=== PATIENT | male | born 1930 | race Two or more races ===

== ENCOUNTER 2017-11-23 19:46 | Inpatient (IN) | payer MEDICARE, OTHER ==
[~2017-11-23] VITALS: Ht 172.7 cm; Wt 72.1 kg
[2017-11-23] MEDS ORDERED: ACETAMINOPHEN 325 MG TABLET PO ONE (20:00)
[2017-11-23] MEDS ORDERED: IV NORMAL SALINE 500ML 500 ML IV ONE ×2 (20:00→22:00)
[2017-11-23] MEDS ORDERED: OSELTAMIVIR 75 MG CAPSULE PO ONE (20:00)
[2017-11-23 20:34] LABS: BASO % 1 % (0-3); EOS # 0.1 x10^3/uL (0.0-0.7); EOS % 3 % (0-3); HEMOGLOBIN 13.9 g/dL (13.0-17.5); LYMPH # 0.2 x10^3/uL (1.0-4.8); LYMPH % 6 % (24-48); MEAN CORPUSCULAR HEMOGLOBIN 28 pg (25-35); MEAN CORPUSCULAR HGB CONC 33 g/dL (31-37); MEAN CORPUSCULAR VOLUME 85 fL (79-100); MONO # 0.5 x10^3/uL (0.0-1.1); MONO % 15 % (0-9); NEUT # 2.6 x10^3uL (1.8-7.7); NEUT % 75 % (31-73); PLATELET COUNT 133 x10^3/uL (140-400); RED BLOOD COUNT 4.97 x10^6/uL (4.30-5.70); RED CELL DISTRIBUTION WIDTH 13.3 % (11.5-14.5); WHITE BLOOD COUNT 3.4 x10^3/uL (4.0-11.0)
[2017-11-23 20:57] LABS: ALBUMIN 3.2 g/dL (3.4-5.0); CALCIUM 8.5 mg/dL (8.5-10.1); CREATININE 1.7 mg/dL (0.7-1.3); DIRECT BILIRUBIN 0.1 mg/dL (0.0-0.2); GFR 38.5; POTASSIUM 5.1 mmol/L (3.5-5.1); TOTAL BILIRUBIN 0.2 mg/dL (0.2-1.0); TOTAL PROTEIN 7.6 g/dL (6.4-8.2)
[2017-11-23 21:39] LABS: INFLUENZA A PATIENT NEGATIVE (NEGATIVE); INFLUENZA B PATIENT POSITIVE (NEGATIVE)
--- NOTE | 2017-11-23 21:43 | EKG ---
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 LIMB LEAD MISPLACEMENT T ABNORMALITY IN HIGH LATERAL LEADS PACEMAKER ARTIFACT Electronically Signed On 11-29-2017 12:51:44 BINDER ROLLER by Kevin Farr MD
[2017-11-23] MEDS ORDERED: MORPHINE SULFATE 2 MG/ML DISP.SYRIN. IV PRN (22:00)
[2017-11-23 23:40] VITALS: BP 167/96
[2017-11-24] VITALS (18 sets, daily range): BP systolic 124–191; BP diastolic 69–100
--- NOTE | 2017-11-24 00:53 | PHYS DOC ---
Past History Past Medical History: Diabetes, High Cholesterol, Hypertension, Stroke Past Surgical History: Other Alcohol Use: None Drug Use: None Adult General Chief Complaint Chief Complaint: FLU SYMPTOM HPI HPI This is a pleasant 87-year-old male with a history of high blood pressure diabetes and high cholesterol resenting to the emergency department today with cough fever and runny nose muscle aches and generalized fatigue. This started within the last 24 hours. He presents today by EMS. The pain in his muscles is a throbbing sensation that is generalized without alleviating or exacerbating factors present. No recent influenza contacts per the family. Review of systems is negative for chest pain shortness of breath abdominal pain nausea vomiting. All other review of systems is negative unless otherwise noted in history of present illness. ED course: 87-year-old gentleman presenting with a fever cough muscle aches suggestive of influenza. Patient tested positive. He was given antipyretics along with Tamiflu. He has uremia and lactic acidosis. The patient was resuscitated with IV fluids for his dehydration and lactic acidosis. I obtained a bed for the patient in the hospital and admitted the patient to Dr. Zamudio. Review of Systems Review of Systems SEE ABOVE. Current Medications Current Medications Current Medications Medications (Trade) Dose Ordered Sig/Callum Start Time Stop Time Status Last Admin Dose Admin Acetaminophen (Tylenol) 650 mg 1X ONCE 11/23/17 20:00 11/23/17 20:04 DC 11/23/17 21:03 650 MG Morphine Sulfate (Morphine 2mg Syringe) 2 mg PRN Q2HR PRN 11/23/17 22:00 11/24/17 21:59 Ondansetron HCl (Zofran) 4 mg PRN Q4HRS PRN 11/23/17 22:00 11/24/17 21:59 Oseltamivir Phosphate (Tamiflu) 75 mg 1X ONCE 11/23/17 20:00 11/23/17 20:04 DC 11/23/17 21:03 75 MG Sodium Chloride 500 ml @ 0 mls/hr 1X ONCE 11/23/17 22:00 11/23/17 22:01 DC 11/23/17 21:42 500 MLS/HR Allergies Allergies Allergies Coded Allergies Type Severity Reaction Last Updated Verified No Known Drug Allergies 11/29/16 No Physical Exam Physical Exam SEE ABOVE Constitutional: Well developed, well nourished, patient appears generally fatigued. He is nontoxic appearing. HENT: Normocephalic, atraumatic, bilateral external ears normal, oropharynx dry , no oral exudates, nose normal. [] Eyes: PERRLA, EOMI, conjunctiva normal, no discharge. [] Neck: Normal range of motion, no tenderness, supple, no stridor. Cardiovascular:Heart rate regular rhythm, no murmur [] Lungs & Thorax: Bilateral breath sounds clear to auscultation [] Abdomen: Bowel sounds normal, soft, no tenderness, no masses, no pulsatile masses. [] Skin: Warm, dry, no erythema, no rash. [] Patient has mild skin tenting Back: No tenderness, no CVA tenderness. [] Extremities: No tenderness, no cyanosis, no clubbing, ROM intact, no edema. [] Neurologic: Alert and oriented X 3, normal motor function, normal sensory function, no focal deficits noted. [] Psychologic: Affect normal, judgement normal, mood normal. [] Current Patient Data Vital Signs Vital Signs Date Time Temp Pulse Resp B/P (MAP) Pulse Ox O2 Delivery O2 Flow Rate FiO2 11/23/17 23:00 85 20 147/91 (109) 96 Room Air 11/23/17 22:00 97.9 Lab Results Laboratory Tests Test 11/23/17 20:05 11/23/17 20:55 11/23/17 23:55 White Blood Count 3.4 x10^3/uL (4.0-11.0) L Red Blood Count 4.97 x10^6/uL (4.30-5.70) Hemoglobin 13.9 g/dL (13.0-17.5) Hematocrit 42.0 % (39.0-53.0) Mean Corpuscular Volume 85 fL (79-100) Mean Corpuscular Hemoglobin 28 pg (25-35) Mean Corpuscular Hemoglobin Concent 33 g/dL (31-37) Red Cell Distribution Width 13.3 % (11.5-14.5) Platelet Count 133 x10^3/uL (140-400) L Neutrophils (%) (Auto) 75 % (31-73) H Lymphocytes (%) (Auto) 6 % (24-48) L Monocytes (%) (Auto) 15 % (0-9) H Eosinophils (%) (Auto) 3 % (0-3) Basophils (%) (Auto) 1 % (0-3) Neutrophils # (Auto) 2.6 x10^3uL (1.8-7.7) Lymphocytes # (Auto) 0.2 x10^3/uL (1.0-4.8) L Monocytes # (Auto) 0.5 x10^3/uL (0.0-1.1) Eosinophils # (Auto) 0.1 x10^3/uL (0.0-0.7) Basophils # (Auto) 0.0 x10^3/uL (0.0-0.2) Sodium Level 133 mmol/L (136-145) L Potassium Level 5.1 mmol/L (3.5-5.1) Chloride Level 101 mmol/L (98-107) Carbon Dioxide Level 21 mmol/L (21-32) Anion Gap 11 (6-14) Blood Urea Nitrogen 38 mg/dL (8-26) H Creatinine 1.7 mg/dL (0.7-1.3) H Estimated GFR (Cockcroft-Gault) 38.5 Glucose Level 312 mg/dL (70-99) H Lactic Acid Level 2.2 mmol/L (0.4-2.0) H 1.1 mmol/L (0.4-2.0) Calcium Level 8.5 mg/dL (8.5-10.1) Total Bilirubin 0.2 mg/dL (0.2-1.0) Direct Bilirubin 0.1 mg/dL (0.0-0.2) Aspartate Amino Transferase (AST) 17 U/L (15-37) Alanine Aminotransferase (ALT) 23 U/L (16-63) Alkaline Phosphatase 93 U/L (46-116) Troponin I Quantitative < 0.017 ng/mL (0-0.055) BK-Dvr-S-Type Natriuretic Peptide 406 pg/mL (0-449) Total Protein 7.6 g/dL (6.4-8.2) Albumin 3.2 g/dL (3.4-5.0) L Lipase 237 U/L (73-393) Influenza Type A (Rapid) Negative (NEGATIVE) Influenza Type B (Rapid) Positive (NEGATIVE) EKG EKG [] Radiology/Procedures Radiology/Procedures [] Course & Med Decision Making Course & Med Decision Making Pertinent Labs and Imaging studies reviewed. (See chart for details) [] Dragon Disclaimer Dragon Disclaimer This electronic medical record was generated, in whole or in part, using a voice recognition dictation system. Departure Departure: Impression: Primary Impression: Influenza Additional Impressions: Lactic acidosis Uremia Leukopenia Hyperglycemia Disposition: ADMITTED INPATIENT Admitting Physician: Анна Zamudio Condition: IMPROVED Referrals: CATARINO CHAIREZ MD (PCP) Problem Qualifiers ANGIE ONEILL MD Nov 24, 2017 00:53
[2017-11-24] MEDS: IV NORMAL SALINE 1,000ML 1,000 ML IV SCH ×3 (01:18→17:25)
[2017-11-24] MEDS ORDERED: CILO50TA PO (04:58)
[2017-11-24] MEDS ORDERED: ROSU10TA PO (04:58)
[2017-11-24] MEDS ORDERED: INSU100I16 SUBCUT (04:58)
[2017-11-24] MEDS ORDERED: ASPI1CPM6 PO (04:58)
[2017-11-24] MEDS ORDERED: atenolol PO (04:59)
[2017-11-24] MEDS ORDERED: ASPI-612 PO (04:59)
[2017-11-24] MEDS ORDERED: lisinopril/HCTZ PO (04:59)
[2017-11-24 06:43] LABS: BASO % 1 % (0-3); EOS # 0.1 x10^3/uL (0.0-0.7); EOS % 2 % (0-3); HEMATOCRIT 39.1 % (39.0-53.0); HEMOGLOBIN 12.8 g/dL (13.0-17.5); LYMPH # 0.3 x10^3/uL (1.0-4.8); LYMPH % 11 % (24-48); MEAN CORPUSCULAR HEMOGLOBIN 28 pg (25-35); MEAN CORPUSCULAR HGB CONC 33 g/dL (31-37); MEAN CORPUSCULAR VOLUME 85 fL (79-100); MONO # 0.5 x10^3/uL (0.0-1.1); MONO % 19 % (0-9); NEUT # 1.8 x10^3uL (1.8-7.7); NEUT % 67 % (31-73); PLATELET COUNT 120 x10^3/uL (140-400); RED BLOOD COUNT 4.58 x10^6/uL (4.30-5.70); RED CELL DISTRIBUTION WIDTH 13.2 % (11.5-14.5); WHITE BLOOD COUNT 2.8 x10^3/uL (4.0-11.0)
[2017-11-24 06:52] LABS: ALBUMIN 2.8 g/dL (3.4-5.0); ALBUMIN/GLOBULIN RATIO 0.7 (1.0-1.7); CREATININE 1.5 mg/dL (0.7-1.3); GFR 44.5; MAGNESIUM 1.9 mg/dL (1.8-2.4); POTASSIUM 4.6 mmol/L (3.5-5.1); TOTAL BILIRUBIN 0.2 mg/dL (0.2-1.0); TOTAL PROTEIN 6.8 g/dL (6.4-8.2)
[2017-11-24] MEDS: INSULIN ASPART 300 UNITS/3 ML INSULN.PEN SQ SCH ×3 (07:30→21:00)
[2017-11-24 07:56] LABS: BILIRUBIN,URINE NEG (NEG); CLARITY,URINE HAZY; COLOR,URINE YELLOW; GLUCOSE,URINE 250 mg/dL (NEG); NITRITE,URINE NEG (NEG); UROBILINOGEN,URINE 0.2 mg/dL (0.2 mg/dL)
[2017-11-24 07:57] LABS: BACTERIA,URINE MOD /HPF (0-FEW); GRANULAR CASTS,URINE OCC /HPF; SQUAMOUS EPITHELIAL CELL,UR FEW /LPF
[2017-11-24] MEDS ORDERED: DEXTROSE 50% 25 GM / 50ML DISP.SYRIN. IV PRN (08:15)
--- NOTE | 2017-11-24 08:15 | RAD ---
Single view chest 11/23/2017 Clinical indication: Congestion, cough and weakness. Comparison: Chest 11/29/2016. Findings: Hypoinflation of both lungs. Cardiac silhouette is unremarkable. No pulmonary venous congestion. Patchy left basilar opacities. No pneumothorax or pleural effusion. Calcified atheromatous disease of the thoracic aortic arch. Impression: Hypoinflation of both lungs with left basilar patchy opacities, which may represent atelectasis, pneumonitis or infection.
[2017-11-24] MEDS: OSELTAMIVIR 75 MG CAPSULE PO SCH ×2 (09:00→21:00)
[2017-11-24] MEDS ORDERED: OSELTAMIVIR 75 MG CAPSULE PO SCH (09:00)
[2017-11-24] MEDS: ASPIRIN/DIPYRIDAMOLE 200/25MG CAP.ER.12H PO SCH ×2 (09:40→21:00)
[2017-11-24] MEDS: ASPIRIN ENTERIC COATED 81 MG TABLET.DR. PO SCH (09:40)
[2017-11-24] MEDS: CILOSTAZOL 50 MG TABLET. PO SCH ×2 (09:40→21:00)
[2017-11-24] MEDS: INSULN ASP PRT/INSULIN ASPART 300 UNITS/3 ML INSULN.PEN. SQ SCH ×2 (09:42→21:27)
[2017-11-24] MEDS: ATENOLOL 50 MG TABLET PO SCH (09:43)
[2017-11-24] MEDS: LISINOPRIL 20 MG TABLET PO SCH (09:44)
[2017-11-24] MEDS ORDERED: hydroCHLOROthiazide 12.5 MG CAPSULE PO SCH (10:00)
[2017-11-24] MEDS: ONDANSETRON PF 4 MG/2 ML VIAL. IV PRN ×2 (10:15→13:41)
[2017-11-24] MEDS ORDERED: ACETAMINOPHEN 325 MG TABLET PO PRN (10:15)
--- NOTE | 2017-11-24 11:08 | RAD ---
2 views of the abdomen 11/24/2017 Indication: Abdominal distention Comparison study: None Findings: Exam is limited by patient motion. Bowel gas pattern is felt to be nonspecific and nonobstructive. No acute osseous changes are seen. Impression: Limited exam with grossly nonobstructive bowel gas pattern.
[2017-11-24] MEDS ORDERED: LABETALOL 20 MG/4 ML DISP.SYRIN. IVP PRN (11:15)
[2017-11-24] MEDS ORDERED: MVI, ADULT NO.4 WITH VIT K 10 ML, FOLIC ACID 1 MG, THIAMINE 100 MG in IV DEXTROSE 5%-LA... IV ONE ×4 (11:30)
[2017-11-24] MEDS: AZITHROMYCIN 500 MG in IV NORMAL SALINE 250ML 250 ML IV SCH (11:33)
[2017-11-24] MEDS: cefTRIAXone IV Push 1 GM VIAL. IVP SCH (11:33)
[2017-11-24 12:49] LABS: CREATININE 1.6 mg/dL (0.7-1.3); GFR 41.3; POTASSIUM 4.1 mmol/L (3.5-5.1)
[2017-11-24] MEDS: ACETAMINOPHEN 650 MG SUPP.RECT. PR PRN (13:43)
--- NOTE | 2017-11-24 15:11 | HP ---
ADMIT DATE: 11/23/2017 HISTORY OF PRESENT ILLNESS: This is an 87-year-old gentleman who was admitted through the Emergency Room and was brought there with cough, fever, runny nose, muscle aches and generalized fatigue onset of about 24 hours. That is from the ER but daughter said he began coughing about a week ago, but was coughing so bad that they brought him to the Emergency Room. He did not get the flu shot and has not had a pneumonia shot and really goes to the doctor. His influenza was positive and he had 101 fever at home. 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 MEDICATIONS: Reviewed with his daughter and are corrected on the MAR. PAST SURGICAL HISTORY: Hernia repair, laminectomy, rotator cuff repair. ALLERGIES: No known allergies. 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 Drank when he was younger, no longer and no tobacco. REVIEW OF SYSTEMS: He does have a speech impediment. He does wear glasses. No hearing issues. He has always had what is described as a tight stomach, generalized weakness also. OBJECTIVE: VITAL SIGNS: Temperature 99.8, blood pressure 167/86, pulse 82, respirations 24, pulse ox 97% on room air. Also his temperature increased to 102.7 at 13:43 as this dictation is little bit later. He does have some chills, threw up large amount, had a large amount of diarrhea. HEENT: The posterior throat has no exudate. His eyes were clear. Tongue was slightly dry. NECK: Supple. LUNGS: With some scattered coarse breath sounds. CARDIOVASCULAR: Regular rhythm and rate. ABDOMEN: Mildly protuberant "tight" but nontender. EXTREMITIES: Without edema. LABORATORY DATA: His white blood cell count is 2.8, platelet count 120. Chemistry: Sodium 135, carbon dioxide 18, BUN 28, creatinine 1.6, glucose 298-328, albumin is 2.8. IMAGING: KUB shows nonobstructive bowel gas pattern. Chest x-ray shows hypoinflation of both lungs with left basilar patchy opacities, may represent atelectasis, pneumonitis or infection. Influenza is positive for influenza B. His urine is negative. ASSESSMENT: 1. Influenza B. 2. Systemic inflammatory response syndrome. 3. Probable left basilar pneumonia. 4. Suspicious for aspiration. 5. Diabetes with hyperglycemia. 6. Weakness. 7. Diarrhea. C. diff being checked. PLAN: Started on Tamiflu, ceftriaxone, pneumonia protocol and treat his elevated blood pressure. ALLI COCHRAN DO DR: EVAN/josiane JOB#: [id number] / [id number]
[2017-11-24] MEDS ORDERED: IPRATRPIUM/ALBUTEROL 0.5/2.5MG 3 ML NEBU. ONE (16:31)
[2017-11-24] MEDS: ATORVASTATIN CALCIUM 20 MG TABLET PO SCH (21:00)
[2017-11-24] MEDS: LACTOBACILLUS RHAMNOSUS GG 1 CAPSULE. PO SCH (21:00)
[2017-11-24] MEDS: IPRATRPIUM/ALBUTEROL 0.5/2.5MG 3 ML NEBU. NEB SCH (21:16)
[2017-11-25] VITALS (23 sets, daily range): BP systolic 119–199; BP diastolic 67–107
[2017-11-25] MEDS: IPRATRPIUM/ALBUTEROL 0.5/2.5MG 3 ML NEBU. NEB SCH ×4 (05:43→21:00)
[2017-11-25 06:45] LABS: BASO % 1 % (0-3); EOS % 0 % (0-3); HEMATOCRIT 41.9 % (39.0-53.0); HEMOGLOBIN 13.4 g/dL (13.0-17.5); LYMPH % 21 % (24-48); MEAN CORPUSCULAR HEMOGLOBIN 27 pg (25-35); MEAN CORPUSCULAR HGB CONC 32 g/dL (31-37); MEAN CORPUSCULAR VOLUME 85 fL (79-100); MONO # 0.5 x10^3/uL (0.0-1.1); MONO % 11 % (0-9); NEUT # 3.2 x10^3uL (1.8-7.7); NEUT % 68 % (31-73); PLATELET COUNT 114 x10^3/uL (140-400); RED BLOOD COUNT 4.95 x10^6/uL (4.30-5.70); RED CELL DISTRIBUTION WIDTH 13.5 % (11.5-14.5); WHITE BLOOD COUNT 4.7 x10^3/uL (4.0-11.0)
[2017-11-25 07:12] LABS: ALBUMIN 2.6 g/dL (3.4-5.0); ALBUMIN/GLOBULIN RATIO 0.7 (1.0-1.7); CALCIUM 8.3 mg/dL (8.5-10.1); CREATININE 1.5 mg/dL (0.7-1.3); GFR 44.5; MAGNESIUM 1.9 mg/dL (1.8-2.4); TOTAL BILIRUBIN 0.2 mg/dL (0.2-1.0); TOTAL PROTEIN 6.6 g/dL (6.4-8.2)
[2017-11-25] MEDS: INSULIN ASPART 300 UNITS/3 ML INSULN.PEN SQ SCH ×4 (07:30→21:00)
[2017-11-25] MEDS: CILOSTAZOL 50 MG TABLET. PO SCH ×2 (08:22→21:00)
[2017-11-25] MEDS: ASPIRIN/DIPYRIDAMOLE 200/25MG CAP.ER.12H PO SCH ×2 (08:22→21:00)
[2017-11-25] MEDS: ASPIRIN ENTERIC COATED 81 MG TABLET.DR. PO SCH (08:23)
[2017-11-25] MEDS: ATENOLOL 50 MG TABLET PO SCH (08:23)
[2017-11-25] MEDS: LISINOPRIL 20 MG TABLET PO SCH (08:23)
[2017-11-25] MEDS: LACTOBACILLUS RHAMNOSUS GG 1 CAPSULE. PO SCH ×2 (08:23→21:00)
[2017-11-25] MEDS: OSELTAMIVIR 75 MG CAPSULE PO SCH ×2 (08:24→21:00)
[2017-11-25] MEDS ORDERED: hydroCHLOROthiazide 12.5 MG CAPSULE PO SCH (09:00)
[2017-11-25] MEDS: INSULN ASP PRT/INSULIN ASPART 300 UNITS/3 ML INSULN.PEN. SQ SCH ×2 (09:00→21:00)
--- NOTE | 2017-11-25 09:29 | PDOC2 ---
CONSULT Date of Admission DATE: 11/25/17 TIME: : Reason for Consult: 2nd degree AV block Problem List Problems Medical Problems: (1) Hyperglycemia Status: Acute (2) Influenza Status: Acute (3) Lactic acidosis Status: Acute (4) Leukopenia Status: Acute (5) Uremia Status: Acute History of Present Illness Mr Pabon is an 87-year-old man who presented to the ED with complaints of cough, fever, runny nose, muscle aches and generalized fatigue onset of about 24 hours. His daughter reports that his cough began about 1 week ago and has been intractable which is why they brought him to the ED. He was febrile at home and in the ED his influenza swab was positive. He was noted to have some AV block on his telemetry so consult was called. He denies chest pain, dyspnea or palpitations. He denies lightheadedness, dizziness or syncope. 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 Past Surgical History Hernia repair, laminectomy, rotator cuff repair. 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 Prior drinker but non non drinker. Non smoker, no illicit drugs. Current Medications Current Medications Oseltamivir Phosphate (Tamiflu) 75 mg 1X ONCE PO Last administered on at 21:03; Start 11/23/17 at 20:00; Stop 11/23/17 at 20:04; Status DC Acetaminophen (Tylenol) 650 mg 1X ONCE PO Last administered on 11/23/17at 21:03 ; Start 11/23/17 at 20:00; Stop 11/23/17 at 20:04; Status DC Sodium Chloride 500 ml @ 0 mls/hr 1X ONCE IV Last administered on 11/23/17at 21 :00; Start 11/23/17 at 20:00; Stop 11/23/17 at 20:04; Status DC Ondansetron HCl (Zofran) 4 mg PRN Q4HRS PRN IV NAUSEA/VOMITING Last administered on 11/24/17at 13:41; Start 11/23/17 at 22:00; Stop 11/24/17 at 21:59 ; Status DC Morphine Sulfate (Morphine 2mg Syringe) 2 mg PRN Q2HR PRN IV PAIN; Start at 22:00; Stop 11/24/17 at 21:59; Status DC Sodium Chloride 1,000 ml @ 100 mls/hr Q10H IV Last administered on 11/24/17at 07:51; Start 11/23/17 at 22:00; Stop 11/24/17 at 21:59; Status DC Sodium Chloride 500 ml @ 0 mls/hr 1X ONCE IV Last administered on 11/23/17at 21 :42; Start 11/23/17 at 22:00; Stop 11/23/17 at 22:01; Status DC Oseltamivir Phosphate (Tamiflu) 75 mg Q24H PO Last administered on 11/24/17at 07 :51; Start 11/24/17 at 09:00; Stop 11/24/17 at 09:00; Status DC Aspirin (Aspirin Enteric Coated) 81 mg DAILY PO Last administered on 11/25/17at 08:23; Start 11/24/17 at 09:00 Dipyridamole/ Aspirin (Aggrenox) 1 cap BID PO Last administered on 11/25/17at 08 :22; Start 11/24/17 at 09:00 Cilostazol (Pletal) 50 mg BID PO Last administered on 11/25/17at 08:22; Start at 09:00 Insulin Aspart (Novolog Mix 70-30) 60 units BID SQ Last administered on at 21:27; Start 11/24/17 at 09:00 Atorvastatin Calcium (Lipitor) 40 mg QHS PO ; Start 11/24/17 at 21:00 Atenolol (Tenormin) 50 mg DAILY PO Last administered on 11/25/17at 08:23; Start 11/24/17 at 10:00 Hydrochlorothiazide (Microzide) 12.5 mg DAILY PO ; Start 11/25/17 at 09:00; Status Cancel Oseltamivir Phosphate (Tamiflu) 75 mg BID PO Last administered on 11/25/17at 08: 24; Start 11/24/17 at 09:00; Stop 11/29/17 at 08:59 Insulin Aspart (NovoLOG) 0-5 UNITS QIDACHS SQ Last administered on 11/24/17at 17 :27; Start 11/24/17 at 07:30 Dextrose 12.5 gm PRN Q15MIN PRN IV SEE COMMENTS; Start 11/24/17 at 08:15 Lisinopril (Prinivil) 20 mg DAILY PO Last administered on 11/25/17at 08:23; Start 11/24/17 at 10:00 Hydrochlorothiazide (Microzide) 12.5 mg DAILY PO Last administered on at 09:44; Start 11/24/17 at 10:00; Stop 11/24/17 at 11:08; Status DC Acetaminophen (Tylenol) 650 mg PRN Q6HRS PRN PO PAIN / TEMP Last administered on 11/25/17at 08:23; Start 11/24/17 at 10:15 Multivitamins/ Minerals 10 ml/ Folic Acid 1 mg/ Thiamine HCl 100 mg/Dextrose/ Lactated Ringer's 1,011.2 ml @ 0 mls/hr 1X ONCE IV Last administered on at 11:10; Start 11/24/17 at 11:30; Stop 11/24/17 at 11:31; Status DC Ceftriaxone Sodium 1 gm/ Sodium Chloride 100 ml @ 200 mls/hr Q24H IV ; Start at 11:00; Status UNV Azithromycin 500 mg/Sodium Chloride 250 ml @ 250 mls/hr Q24H IV Last administered on 11/24/17at 11:33; Start 11/24/17 at 12:00; Stop 11/27/17 at 11:59 Labetalol HCl (Normodyne) 10 mg PRN Q2HR PRN IVP HYPERTENSION, SEE COMMENTS; Start 11/24/17 at 11:15 Ceftriaxone Sodium (Rocephin) 1 gm Q24H IVP Last administered on 11/24/17at 11: 33; Start 11/24/17 at 11:00 Lactobacillus Rhamnosus (Culturelle) 1 cap BID PO Last administered on at 08:23; Start 11/24/17 at 21:00 Albuterol/ Ipratropium (Duoneb) 3 ml RTBID NEB Last administered on 11/25/17at 05:43; Start 11/24/17 at 20:00 Acetaminophen (Tylenol) 650 mg PRN Q6HRS PRN ME PAIN / TEMP Last administered on 11/24/17at 13:43; Start 11/24/17 at 13:45 Albuterol/ Ipratropium (Duoneb) 3 ml STK-MED ONCE .ROUTE Last administered on at 16:35; Start 11/24/17 at 16:31; Stop 11/24/17 at 16:32; Status DC Active Scripts Active Reported [lisinopril/HCTZ] 1 Tab PO DAILY [atenolol] 1 Tab PO DAILY Aspirin Ec (Aspirin) 81 Mg Tablet.dr 1 Tab PO DAILY Novolog Mix 70-30 Flexpen Syrn (Insuln Asp Prt/Insulin Aspart) 100 Unit/1 Ml Insuln.pen 60 Units SUBCUT BID Aspirin-Dipyridam ER 25-200 mg (Aspirin/Dipyridamole) 1 Each Cpmp.12hr 1 Cap PO BID Rosuvastatin Calcium 10 Mg Tablet 10 Mg PO QHS Cilostazol 50 Mg Tablet 50 Mg PO BID Allergies: Coded Allergies: No Known Drug Allergies (Unverified , 11/29/16) Review of System as per HPI General: Alert, Oriented X3, Cooperative, No acute distress HEENT: Atraumatic, EOMI Lungs: Clear to auscultation, Other (mildly decreased bases, no crakles, rhonchi or wheezing) Heart: Regular rate, Normal S1, Normal S2, Other (no gallops, clicks or rubs) Extremities: No clubbing, No cyanosis, Normal pulses Neuro: Normal speech, Strength at 5/5 X4 ext Psych/Mental Status: Mental status NL, Mood NL VITALS Vital Signs Date Time Temp Pulse Resp B/P (MAP) Pulse Ox O2 Delivery O2 Flow Rate FiO2 11/25/17 08:23 80 11/25/17 08:00 Room Air 11/25/17 07:42 100.4 11/25/17 06:00 18 153/73 (99) 97 Labs Laboratory Tests Test 11/23/17 20:05 11/23/17 20:55 11/23/17 23:45 11/23/17 23:55 White Blood Count 3.4 x10^3/uL (4.0-11.0) Red Blood Count 4.97 x10^6/uL (4.30-5.70) Hemoglobin 13.9 g/dL (13.0-17.5) Hematocrit 42.0 % (39.0-53.0) Mean Corpuscular Volume 85 fL (79-100) Mean Corpuscular Hemoglobin 28 pg (25-35) Mean Corpuscular Hemoglobin Concent 33 g/dL (31-37) Red Cell Distribution Width 13.3 % (11.5-14.5) Platelet Count 133 x10^3/uL (140-400) Neutrophils (%) (Auto) 75 % (31-73) Lymphocytes (%) (Auto) 6 % (24-48) Monocytes (%) (Auto) 15 % (0-9) Eosinophils (%) (Auto) 3 % (0-3) Basophils (%) (Auto) 1 % (0-3) Neutrophils # (Auto) 2.6 x10^3uL (1.8-7.7) Lymphocytes # (Auto) 0.2 x10^3/uL (1.0-4.8) Monocytes # (Auto) 0.5 x10^3/uL (0.0-1.1) Eosinophils # (Auto) 0.1 x10^3/uL (0.0-0.7) Basophils # (Auto) 0.0 x10^3/uL (0.0-0.2) Sodium Level 133 mmol/L (136-145) Potassium Level 5.1 mmol/L (3.5-5.1) Chloride Level 101 mmol/L (98-107) Carbon Dioxide Level 21 mmol/L (21-32) Anion Gap 11 (6-14) Blood Urea Nitrogen 38 mg/dL (8-26) Creatinine 1.7 mg/dL (0.7-1.3) Estimated GFR (Cockcroft-Gault) 38.5 Glucose Level 312 mg/dL (70-99) Lactic Acid Level 2.2 mmol/L (0.4-2.0) 1.1 mmol/L (0.4-2.0) Calcium Level 8.5 mg/dL (8.5-10.1) Total Bilirubin 0.2 mg/dL (0.2-1.0) Direct Bilirubin 0.1 mg/dL (0.0-0.2) Aspartate Amino Transf (AST/SGOT) 17 U/L (15-37) Alanine Aminotransferase (ALT/SGPT) 23 U/L (16-63) Alkaline Phosphatase 93 U/L (46-116) Troponin I Quantitative < 0.017 ng/mL (0-0.055) DA-Cyp-U-Type Natriuretic Peptide 406 pg/mL (0-449) Total Protein 7.6 g/dL (6.4-8.2) Albumin 3.2 g/dL (3.4-5.0) Lipase 237 U/L (73-393) Influenza Type A (Rapid) Negative (NEGATIVE) Influenza Type B (Rapid) Positive (NEGATIVE) Nasal Screen MRSA (PCR) Negative (Negative) Test 11/24/17 05:40 11/24/17 06:25 11/24/17 07:53 11/24/17 10:41 White Blood Count 2.8 x10^3/uL (4.0-11.0) Red Blood Count 4.58 x10^6/uL (4.30-5.70) Hemoglobin 12.8 g/dL (13.0-17.5) Hematocrit 39.1 % (39.0-53.0) Mean Corpuscular Volume 85 fL (79-100) Mean Corpuscular Hemoglobin 28 pg (25-35) Mean Corpuscular Hemoglobin Concent 33 g/dL (31-37) Red Cell Distribution Width 13.2 % (11.5-14.5) Platelet Count 120 x10^3/uL (140-400) Neutrophils (%) (Auto) 67 % (31-73) Lymphocytes (%) (Auto) 11 % (24-48) Monocytes (%) (Auto) 19 % (0-9) Eosinophils (%) (Auto) 2 % (0-3) Basophils (%) (Auto) 1 % (0-3) Neutrophils # (Auto) 1.8 x10^3uL (1.8-7.7) Lymphocytes # (Auto) 0.3 x10^3/uL (1.0-4.8) Monocytes # (Auto) 0.5 x10^3/uL (0.0-1.1) Eosinophils # (Auto) 0.1 x10^3/uL (0.0-0.7) Basophils # (Auto) 0.0 x10^3/uL (0.0-0.2) Sodium Level 134 mmol/L (136-145) Potassium Level 4.6 mmol/L (3.5-5.1) Chloride Level 104 mmol/L (98-107) Carbon Dioxide Level 19 mmol/L (21-32) Anion Gap 11 (6-14) Blood Urea Nitrogen 30 mg/dL (8-26) Creatinine 1.5 mg/dL (0.7-1.3) Estimated GFR (Cockcroft-Gault) 44.5 BUN/Creatinine Ratio 20 (6-20) Glucose Level 278 mg/dL (70-99) Calcium Level 8.0 mg/dL (8.5-10.1) Magnesium Level 1.9 mg/dL (1.8-2.4) Total Bilirubin 0.2 mg/dL (0.2-1.0) Aspartate Amino Transf (AST/SGOT) 17 U/L (15-37) Alanine Aminotransferase (ALT/SGPT) 19 U/L (16-63) Alkaline Phosphatase 80 U/L (46-116) Total Protein 6.8 g/dL (6.4-8.2) Albumin 2.8 g/dL (3.4-5.0) Albumin/Globulin Ratio 0.7 (1.0-1.7) Urine Collection Type Unknown Urine Color Yellow Urine Clarity Hazy Urine pH 5.5 Urine Specific [place] 1.020 Urine Protein >100 mg/dl (NEG-TRACE) Urine Glucose (UA) 250 mg/dL (NEG) Urine Ketones (Stick) Neg mg/dL (NEG) Urine Blood Mod (NEG) Urine Nitrite Neg (NEG) Urine Bilirubin Neg (NEG) Urine Urobilinogen Dipstick 0.2 mg/dL (0.2 mg/dL) Urine Leukocyte Esterase Neg (NEG) Urine RBC 3-5 /HPF (0-2) Urine WBC 1-4 /HPF (0-4) Urine Squamous Epithelial Cells Few /LPF Urine Bacteria Mod /HPF (0-FEW) Urine Granular Casts Occ /HPF Urine Mucus Slight /LPF Glucose (Fingerstick) 266 mg/dL (70-99) Clostridium difficile Toxin (PCR) Negative (Negative) Test 11/24/17 11:06 11/24/17 12:37 11/24/17 14:58 11/24/17 16:52 Glucose (Fingerstick) 298 mg/dL (70-99) 271 mg/dL (70-99) 230 mg/dL (70-99) Sodium Level 135 mmol/L (136-145) Potassium Level 4.1 mmol/L (3.5-5.1) Chloride Level 103 mmol/L (98-107) Carbon Dioxide Level 18 mmol/L (21-32) Anion Gap 14 (6-14) Blood Urea Nitrogen 28 mg/dL (8-26) Creatinine 1.6 mg/dL (0.7-1.3) Estimated GFR (Cockcroft-Gault) 41.3 Glucose Level 328 mg/dL (70-99) Calcium Level 8.0 mg/dL (8.5-10.1) Test 11/24/17 21:09 11/25/17 05:43 11/25/17 07:34 Glucose (Fingerstick) 244 mg/dL (70-99) 125 mg/dL (70-99) White Blood Count 4.7 x10^3/uL (4.0-11.0) Red Blood Count 4.95 x10^6/uL (4.30-5.70) Hemoglobin 13.4 g/dL (13.0-17.5) Hematocrit 41.9 % (39.0-53.0) Mean Corpuscular Volume 85 fL (79-100) Mean Corpuscular Hemoglobin 27 pg (25-35) Mean Corpuscular Hemoglobin Concent 32 g/dL (31-37) Red Cell Distribution Width 13.5 % (11.5-14.5) Platelet Count 114 x10^3/uL (140-400) Neutrophils (%) (Auto) 68 % (31-73) Lymphocytes (%) (Auto) 21 % (24-48) Monocytes (%) (Auto) 11 % (0-9) Eosinophils (%) (Auto) 0 % (0-3) Basophils (%) (Auto) 1 % (0-3) Neutrophils # (Auto) 3.2 x10^3uL (1.8-7.7) Lymphocytes # (Auto) 1.0 x10^3/uL (1.0-4.8) Monocytes # (Auto) 0.5 x10^3/uL (0.0-1.1) Eosinophils # (Auto) 0.0 x10^3/uL (0.0-0.7) Basophils # (Auto) 0.0 x10^3/uL (0.0-0.2) Sodium Level 139 mmol/L (136-145) Potassium Level 4.0 mmol/L (3.5-5.1) Chloride Level 108 mmol/L (98-107) Carbon Dioxide Level 20 mmol/L (21-32) Anion Gap 11 (6-14) Blood Urea Nitrogen 24 mg/dL (8-26) Creatinine 1.5 mg/dL (0.7-1.3) Estimated GFR (Cockcroft-Gault) 44.5 BUN/Creatinine Ratio 16 (6-20) Glucose Level 118 mg/dL (70-99) Calcium Level 8.3 mg/dL (8.5-10.1) Magnesium Level 1.9 mg/dL (1.8-2.4) Total Bilirubin 0.2 mg/dL (0.2-1.0) Aspartate Amino Transf (AST/SGOT) 18 U/L (15-37) Alanine Aminotransferase (ALT/SGPT) 19 U/L (16-63) Alkaline Phosphatase 63 U/L (46-116) Total Protein 6.6 g/dL (6.4-8.2) Albumin 2.6 g/dL (3.4-5.0) Albumin/Globulin Ratio 0.7 (1.0-1.7) Assessment/Plan 1. Mobitz 1 with intermittent 2:1 conduction - check echo for lv function. Monitor on tele. Decrease atenolol. 2. influenza - mgmt as per PCP 3. hypertension - controlled. Await echo. 4. hyperlipidemia - continue statin 5. renal insufficiency - improving. Problems: MANUEL YADAV APRN Nov 25, 2017 09:29
[2017-11-25] MEDS: cefTRIAXone IV Push 1 GM VIAL. IVP SCH (11:27)
[2017-11-25] MEDS: AZITHROMYCIN 500 MG in IV NORMAL SALINE 250ML 250 ML IV SCH (14:45)
[2017-11-25] MEDS: ACETAMINOPHEN 650 MG SUPP.RECT. PR PRN (18:33)
[2017-11-25] MEDS: ATORVASTATIN CALCIUM 20 MG TABLET PO SCH (21:00)
[2017-11-26] VITALS (15 sets, daily range): BP systolic 138–184; BP diastolic 69–95
[2017-11-26] MEDS: IPRATRPIUM/ALBUTEROL 0.5/2.5MG 3 ML NEBU. NEB SCH ×4 (05:00→20:47)
[2017-11-26 07:25] LABS: BASO % 1 % (0-3); EOS % 0 % (0-3); HEMATOCRIT 40.4 % (39.0-53.0); HEMOGLOBIN 12.9 g/dL (13.0-17.5); LYMPH # 0.8 x10^3/uL (1.0-4.8); LYMPH % 23 % (24-48); MEAN CORPUSCULAR HEMOGLOBIN 28 pg (25-35); MEAN CORPUSCULAR HGB CONC 32 g/dL (31-37); MEAN CORPUSCULAR VOLUME 86 fL (79-100); MONO # 0.2 x10^3/uL (0.0-1.1); MONO % 6 % (0-9); NEUT # 2.5 x10^3uL (1.8-7.7); NEUT % 70 % (31-73); PLATELET COUNT 110 x10^3/uL (140-400); RED BLOOD COUNT 4.71 x10^6/uL (4.30-5.70); WHITE BLOOD COUNT 3.6 x10^3/uL (4.0-11.0)
[2017-11-26] MEDS: INSULIN ASPART 300 UNITS/3 ML INSULN.PEN SQ SCH ×4 (07:30→21:00)
[2017-11-26 07:53] LABS: ALBUMIN 2.3 g/dL (3.4-5.0); ALBUMIN/GLOBULIN RATIO 0.6 (1.0-1.7); CALCIUM 8.2 mg/dL (8.5-10.1); CREATININE 1.5 mg/dL (0.7-1.3); GFR 44.5; MAGNESIUM 1.8 mg/dL (1.8-2.4); TOTAL BILIRUBIN 0.2 mg/dL (0.2-1.0); TOTAL PROTEIN 6.3 g/dL (6.4-8.2)
--- NOTE | 2017-11-26 08:33 | PN ---
DATE: 11/25/2017 CURRENT PROBLEMS: 1. Influenza B. 2. Systemic inflammatory response syndrome. 3. Left basilar pneumonia. 4. Aspiration risk. 5. Diabetes with hyperglycemia. 6. Severe weakness. 7. Diarrhea, Clostridium difficile negative. 8. Wenckebach heart block. 9. Metabolic acidosis. 10. Severe protein calorie malnutrition. 11. Dehydration. SUBJECTIVE: An 87-year-old, who was admitted for influenza. He spiked a fever to 102.7 yesterday, now has come down and doing better. He is more alert now, able to eat a little bit. Daughter is there with him. OBJECTIVE: VITAL SIGNS: Blood pressure is 152/82, temperature 99.5, pulse is 80. GENERAL: The patient's color is better. He is much more alert. HEENT: His tongue is moist. Speech is chronic dysarthria. NECK: Supple. LUNGS: Clear. CARDIOVASCULAR: Somewhat irregular rhythm and rate. ABDOMEN: Soft, nontender, no masses. EXTREMITIES: Without edema. LABORATORY DATA: Sodium 139, potassium 4.0, chloride 108, CO2 is 20, which is improved from 18. Creatinine is 1.5. Glucose is better this morning. C. diff is negative. Creatinine is 1.5 with a BUN now come down to 24 from ___. PLAN: Continue aggressive supportive care. Cardiology has reviewed the Wenckebach and feels it is related to his illness. Continue on the IV antibiotics for another day and discussed rehab with the daughter who is certainly for that at this time. ALLI COCHRAN DO DR: EVAN/josiane JOB#: [id number] / [id number]
[2017-11-26] MEDS: OSELTAMIVIR 75 MG CAPSULE PO SCH ×2 (08:52→20:56)
[2017-11-26] MEDS: ASPIRIN/DIPYRIDAMOLE 200/25MG CAP.ER.12H PO SCH ×2 (09:00→20:56)
[2017-11-26] MEDS: INSULN ASP PRT/INSULIN ASPART 300 UNITS/3 ML INSULN.PEN. SQ SCH ×2 (09:00→21:00)
[2017-11-26] MEDS: LACTOBACILLUS RHAMNOSUS GG 1 CAPSULE. PO SCH ×2 (09:01→20:56)
[2017-11-26] MEDS: LISINOPRIL 20 MG TABLET PO SCH (09:01)
[2017-11-26] MEDS: ASPIRIN ENTERIC COATED 81 MG TABLET.DR. PO SCH (09:02)
[2017-11-26] MEDS: AA 3%/ELECTROLYTE-TPN SOLN/GLY 1,000 ML IV SCH ×2 (09:02→23:39)
[2017-11-26] MEDS: ATENOLOL 25 MG TABLET PO SCH (09:02)
[2017-11-26] MEDS: CILOSTAZOL 50 MG TABLET. PO SCH ×2 (09:13→20:58)
[2017-11-26] MEDS: cefTRIAXone IV Push 1 GM VIAL. IVP SCH (11:02)
[2017-11-26] MEDS: AZITHROMYCIN 500 MG in IV NORMAL SALINE 250ML 250 ML IV SCH (11:03)
--- NOTE | 2017-11-26 14:08 | PDOC ---
PROVIDER NOTE PROVIDER NOTE PROVIDER NOTE S: No acute events. Continues to feel weak. O: VSS (Mildly hypertensive) Bilateral rhonchi. Normal heart tones. No edema. Labs reviewed. Meds reviewed - Atenolol decreased. Impression: 1. HTN 2. Transient Mobitz Type 1 in the setting of flu RECS 1. Supportive care for now. No further CV needs. We will follow peripherally. PLs call q questions. THanks RAQUEL HERRING MD Nov 26, 2017 14:08
[2017-11-26] MEDS ORDERED: ATENOLOL 50 MG TABLET PO ONE (17:00)
[2017-11-26] MEDS: ATORVASTATIN CALCIUM 20 MG TABLET PO SCH (20:56)
[2017-11-27] MEDS: IPRATRPIUM/ALBUTEROL 0.5/2.5MG 3 ML NEBU. NEB SCH ×4 (06:16→20:48)
[2017-11-27] MEDS: INSULIN ASPART 300 UNITS/3 ML INSULN.PEN SQ SCH ×4 (07:30→21:24)
[2017-11-27 07:59] LABS: BASO % 0 % (0-3); EOS % 1 % (0-3); HEMATOCRIT 39.7 % (39.0-53.0); HEMOGLOBIN 12.9 g/dL (13.0-17.5); LYMPH # 0.5 x10^3/uL (1.0-4.8); LYMPH % 19 % (24-48); MEAN CORPUSCULAR HEMOGLOBIN 28 pg (25-35); MEAN CORPUSCULAR HGB CONC 33 g/dL (31-37); MEAN CORPUSCULAR VOLUME 85 fL (79-100); MONO # 0.2 x10^3/uL (0.0-1.1); MONO % 7 % (0-9); NEUT # 1.9 x10^3uL (1.8-7.7); NEUT % 73 % (31-73); PLATELET COUNT 119 x10^3/uL (140-400); RED BLOOD COUNT 4.66 x10^6/uL (4.30-5.70); RED CELL DISTRIBUTION WIDTH 13.5 % (11.5-14.5); WHITE BLOOD COUNT 2.6 x10^3/uL (4.0-11.0)
[2017-11-27 08:19] LABS: ALBUMIN 2.2 g/dL (3.4-5.0); ALBUMIN/GLOBULIN RATIO 0.5 (1.0-1.7); CALCIUM 8.4 mg/dL (8.5-10.1); CREATININE 1.3 mg/dL (0.7-1.3); GFR 52.5; MAGNESIUM 1.7 mg/dL (1.8-2.4); TOTAL BILIRUBIN 0.3 mg/dL (0.2-1.0); TOTAL PROTEIN 6.6 g/dL (6.4-8.2)
[2017-11-27] MEDS: INSULN ASP PRT/INSULIN ASPART 300 UNITS/3 ML INSULN.PEN. SQ SCH ×2 (09:00→21:24)
[2017-11-27 11:06] VITALS: BP 154/97
[2017-11-27] MEDS: AA 3%/ELECTROLYTE-TPN SOLN/GLY 1,000 ML IV SCH ×2 (11:18→21:25)
[2017-11-27] MEDS: ASPIRIN/DIPYRIDAMOLE 200/25MG CAP.ER.12H PO SCH ×2 (11:18→21:24)
[2017-11-27] MEDS: ASPIRIN ENTERIC COATED 81 MG TABLET.DR. PO SCH (11:19)
[2017-11-27] MEDS: LACTOBACILLUS RHAMNOSUS GG 1 CAPSULE. PO SCH ×2 (11:19→21:18)
[2017-11-27] MEDS: CILOSTAZOL 50 MG TABLET. PO SCH ×2 (11:19→21:18)
[2017-11-27] MEDS: LISINOPRIL 20 MG TABLET PO SCH (11:20)
[2017-11-27] MEDS: ATENOLOL 25 MG TABLET PO SCH (11:20)
[2017-11-27] MEDS: OSELTAMIVIR 75 MG CAPSULE PO SCH ×2 (11:20→21:17)
[2017-11-27] MEDS: cefTRIAXone IV Push 1 GM VIAL. IVP SCH (11:21)
--- NOTE | 2017-11-27 13:54 | PN ---
DATE: 11/26/2017 CURRENT PROBLEMS: 1. Moderate oropharyngeal dysplasia. 2. Influenza type B. 3. Extreme weakness. 4. Systemic inflammatory response syndrome. 5. Left basilar pneumonia. 6. Aspiration risk. 7. Diabetes with hyperglycemia. 8. Diarrhea, Clostridium difficile negative, resolved. 9. Wenckebach heart block. 10. Metabolic acidosis. 11. Severe protein calorie malnutrition. 12. Dehydration that has improved with fluids. SUBJECTIVE: Doing much better today, is able to sit up in a chair. Temperature down, has been seen by Speech and found to have oropharyngeal dysphagia. We will definitely need rehab and strengthening, but overall is doing better. OBJECTIVE: VITAL SIGNS: Blood pressure is 143/75, pulse 78, respirations 20, pulse ox 97% on room air. Weight, there is not current weight on him. Intake 3450, output 2850. GENERAL: Color much improved. HEENT: His tongue is moist. NECK: Supple. LUNGS: Clear. CARDIOVASCULAR: Slightly irregular rhythm and rate. ABDOMEN: Soft, nontender. EXTREMITIES: With trace of edema. LABORATORY DATA: BUN is 20, creatinine is 1.5 that is about his baseline, it is improved from 1.7. Glucose is also improved. Albumin is 2.3. PLAN: Added Procalamine today. He has been placed on n.p.o. They will reevaluate him tomorrow and we will continue to monitor that and he will be a good candidate for rehab. ALLI COCHRAN DO DR: EVAN/josiane JOB#: [id number] / [id number]
[2017-11-27] MEDS ORDERED: MAGNESIUM SULFATE 2GM 50 ML IV ONE (14:30)
[2017-11-27 18:30] VITALS: BP 157/96
[2017-11-27 19:43] VITALS: BP 169/91
[2017-11-27] MEDS: CIPROFLOXACIN HCL 250 MG TABLET PO SCH (21:17)
[2017-11-27] MEDS: ATORVASTATIN CALCIUM 20 MG TABLET PO SCH (21:18)
[2017-11-27 23:15] VITALS: BP 145/83
[2017-11-28 05:18] VITALS: BP 146/85
[2017-11-28] MEDS: IPRATRPIUM/ALBUTEROL 0.5/2.5MG 3 ML NEBU. NEB SCH ×4 (05:52→20:00)
[2017-11-28] MEDS: ASPIRIN/DIPYRIDAMOLE 200/25MG CAP.ER.12H PO SCH ×2 (08:28→20:31)
[2017-11-28] MEDS: OSELTAMIVIR 75 MG CAPSULE PO SCH ×2 (08:28→20:31)
[2017-11-28] MEDS: LACTOBACILLUS RHAMNOSUS GG 1 CAPSULE. PO SCH ×2 (08:28→20:31)
[2017-11-28] MEDS: CIPROFLOXACIN HCL 250 MG TABLET PO SCH ×2 (08:29→20:31)
[2017-11-28] MEDS: ATENOLOL 25 MG TABLET PO SCH (08:29)
[2017-11-28] MEDS: CILOSTAZOL 50 MG TABLET. PO SCH ×2 (08:30→20:31)
[2017-11-28] MEDS: LISINOPRIL 20 MG TABLET PO SCH (08:30)
[2017-11-28] MEDS: INSULIN ASPART 300 UNITS/3 ML INSULN.PEN SQ SCH ×4 (08:34→20:52)
[2017-11-28] MEDS: ASPIRIN ENTERIC COATED 81 MG TABLET.DR. PO SCH (08:35)
[2017-11-28] MEDS: INSULN ASP PRT/INSULIN ASPART 300 UNITS/3 ML INSULN.PEN. SQ SCH ×2 (09:00→22:40)
--- NOTE | 2017-11-28 09:57 | PN ---
DATE: 11/27/2017 CURRENT PROBLEMS: 1. Influenza type B, on Tamiflu. 2. Moderate oropharyngeal dysplasia. 3. Weakness. 4. Systemic inflammatory response syndrome. 5. Left basilar pneumonia. 6. Aspiration risk. 7. Wenckebach type 1. 8. Diarrhea. C. diff negative, resolved. 9. Metabolic acidosis that has resolved. 10. Hypomagnesemia. 11. Severe protein-calorie malnutrition. 12. Hyperglycemia. 13. N.p.o. status on procalamine. SUBJECTIVE: He is doing better. He was seen by Speech yesterday. Recommend n.p.o. until they could reevaluate and when he gets a little stronger, will need to be reevaluated tomorrow and determine where to proceed from there. He has been eating fine at home prior to becoming ill. He clears his throat quite a bit, jock some, but has not had any problem with eating previously. He is a very good candidate for swing bed or intermediate services. OBJECTIVE: VITAL SIGNS: Blood pressure 154/97, pulse 83, respirations 19, pulse ox 96% on room air, temperature 98.6. He has been afebrile for 24 hours. GENERAL: Color is good. He has bilaterally enlarged parotid glands and nontender. TONGUE: Moist. NECK: Supple. LUNGS: Clear. CARDIOVASCULAR: Irregular rhythm and rate slightly. ABDOMEN: Soft, nontender. EXTREMITIES: Without edema. LABORATORY DATA: Today, glucose is little bit higher, on procalamine, fasting was 233, BUN is 30, creatinine 1.3, magnesium is 1.7 and albumin is 2.2. His urine culture grew out Klebsiella pneumoniae as well as Staphylococcus haemolyticus. 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 He had been on antibiotics for possible pneumonia. We will check the sensitivities. Short course of antibiotics for urine and plan for skill tomorrow. ALLI COCHRAN DO DR: EVAN/josiane JOB#: [id number] / [id number]
[2017-11-28] MEDS: AA 3%/ELECTROLYTE-TPN SOLN/GLY 1,000 ML IV SCH ×2 (10:00→22:30)
[2017-11-28 11:34] VITALS: BP 159/64
[2017-11-28 15:11] VITALS: BP 177/86
[2017-11-28] MEDS: ATORVASTATIN CALCIUM 20 MG TABLET PO SCH (20:32)
[2017-11-28 21:21] VITALS: BP 155/86
[2017-11-28 23:56] VITALS: BP 158/85
[2017-11-29] MEDS: IPRATRPIUM/ALBUTEROL 0.5/2.5MG 3 ML NEBU. NEB SCH ×4 (06:15→22:02)
[2017-11-29 07:13] LABS: HEMOGLOBIN 13.1 g/dL (13.0-17.5); RED BLOOD COUNT 4.75 x10^6/uL (4.30-5.70); RED CELL DISTRIBUTION WIDTH 13.3 % (11.5-14.5); WHITE BLOOD COUNT 3.8 x10^3/uL (4.0-11.0)
[2017-11-29 07:15] LABS: ALBUMIN 2.2 g/dL (3.4-5.0); ALBUMIN/GLOBULIN RATIO 0.5 (1.0-1.7); CALCIUM 8.5 mg/dL (8.5-10.1); CREATININE 1.3 mg/dL (0.7-1.3); GFR 52.5; POTASSIUM 3.8 mmol/L (3.5-5.1); TOTAL BILIRUBIN 0.2 mg/dL (0.2-1.0); TOTAL PROTEIN 6.5 g/dL (6.4-8.2)
[2017-11-29] MEDS: INSULIN ASPART 300 UNITS/3 ML INSULN.PEN SQ SCH ×4 (07:30→21:00)
[2017-11-29] MEDS: CILOSTAZOL 50 MG TABLET. PO SCH ×2 (09:00→22:35)
[2017-11-29] MEDS: ATENOLOL 25 MG TABLET PO SCH (10:22)
[2017-11-29] MEDS: ASPIRIN 81 MG TAB.CHEW PO SCH (10:22)
[2017-11-29] MEDS: ASPIRIN/DIPYRIDAMOLE 200/25MG CAP.ER.12H PO SCH ×2 (10:22→22:34)
[2017-11-29] MEDS: CIPROFLOXACIN HCL 250 MG TABLET PO SCH ×2 (10:22→22:34)
[2017-11-29] MEDS: LACTOBACILLUS RHAMNOSUS GG 1 CAPSULE. PO SCH ×2 (10:22→22:34)
[2017-11-29] MEDS: LISINOPRIL 20 MG TABLET PO SCH (10:25)
[2017-11-29] MEDS: INSULN ASP PRT/INSULIN ASPART 300 UNITS/3 ML INSULN.PEN. SQ SCH ×2 (10:40→22:47)
[2017-11-29 11:20] VITALS: BP 146/78
--- NOTE | 2017-11-29 11:20 | PN ---
DATE: 11/28/2017 SUBJECTIVE: The patient is an 87-year-old male patient who apparently was admitted originally with an influenza B, pneumonia, most likely aspiration, generalized weakness and diarrhea. He was started on Tamiflu, ceftriaxone and initially was extremely weak, lethargic and was started on procalamine. He has also had an indwelling Kellogg catheter. However, the patient dramatically improved. He is now eating and drinking. He is able to get out of the bed and walk to the bathroom on his own with minimal assistance. OBJECTIVE: GENERAL: When I examined him this afternoon, he was resting slightly propped up in bed, in no apparent respiratory distress, slightly pale, but no jaundice, cyanosis, lymphadenopathy or thyromegaly. No jugular venous distension. No lower limb edema. VITAL SIGNS: Her heart rate was 78, blood pressure was 159/64, temperature was 97.5, respiratory rate 20, and oxygen saturation was 100% on room air. HEAD, EYES, EARS, NOSE AND THROAT: Showed normocephalic, atraumatic. NECK: Supple. HEART: Showed normal first and second sounds. No gallop, rub or murmur. CHEST: Clear to auscultation. No crepitation or rhonchi. ABDOMEN: Distended, soft, nontender. NEUROLOGIC: He is sleepy, but arousable. All cranial nerves intact. She moves extremities without difficulty, ambulates with minimal assistance, although his daughter said that he is better off with a walker. His intake over the last 24 hours was 735, output was 3450. LABORATORY DATA: As of this morning showed a white cell count 2600, hemoglobin 13, hematocrit 39, MCV 85 and platelet count of 119,000. His chemistry showed a serum sodium of 140, potassium 4, chloride 108, bicarbonate 22, anion gap of 10, BUN 30, creatinine 1.3, estimated GFR was 52 mL per minute. His glucose was 147, calcium was 8.4, magnesium was 1.7. Total bilirubin, AST, ALT, alkaline phosphatase were normal. Total protein 6.6, albumin 2.2. His urine culture showed growth of Klebsiella pneumoniae as well as Staphylococcus haemolyticus. ASSESSMENT: Influenza B, treated with Tamiflu; moderate oropharyngeal dysphagia, however, the patient is now eating; generalized weakness, left basilar pneumonia; diarrhea, C. diff negative; resolved metabolic acidosis; resolved hypomagnesemia; resolved severe protein calorie malnutrition. PLAN: To discontinue the procalamine, discontinue Kellogg catheter and discontinue telemetry. We will probably swing him tomorrow to continue the process of rehabilitation. I will repeat his labs tomorrow. CUAUHTEMOC NARAYAN MD DR: JHON/josiane JOB#: [id number] / [id number]
[2017-11-29 15:25] VITALS: BP 131/77
[2017-11-29 19:53] VITALS: BP 159/81
[2017-11-29] MEDS: ATORVASTATIN CALCIUM 20 MG TABLET PO SCH (22:37)
[2017-11-30 03:42] VITALS: BP 148/79
[2017-11-30 05:06] VITALS: BP 163/77
[2017-11-30] MEDS: IPRATRPIUM/ALBUTEROL 0.5/2.5MG 3 ML NEBU. NEB SCH ×4 (05:53→21:46)
[2017-11-30] MEDS: INSULIN ASPART 300 UNITS/3 ML INSULN.PEN SQ SCH ×4 (07:30→20:56)
--- NOTE | 2017-11-30 07:41 | PN ---
DATE: 11/29/2017 SUBJECTIVE: The patient is resting slightly propped up in bed, definitely more awake, alert. His daughter states that he woke up and shower, dressed himself, and walked with physical therapy. He denied any complaint. On questioning him, the nursing staff did not voice any concern. OBJECTIVE: GENERAL: When I examined him, he looked well and was clearly in no apparent respiratory distress. VITAL SIGNS: His heart rate was 72, blood pressure 131/77, temperature was 97.1, respiratory rate 20, and oxygen saturation was 99%. HEAD, EYES, EARS, NOSE AND THROAT: Showed normocephalic, atraumatic. NECK: Supple. HEART: Showed normal first and second sounds. No gallop, rub, or murmur. CHEST: Clear to auscultation. No crepitation or rhonchi. ABDOMEN: Distended, soft, nontender. NEUROLOGIC: He is definitely more awake, alert, responding appropriately. Cranial nerves are intact. He moves extremities without difficulty, ambulates with a walker. LABORATORY DATA: His lab work today showed a white cell count of 3800, hemoglobin 13, hematocrit 40, MCV 84, and platelet count 236,000. His chemistry showed a serum sodium 143, potassium 3.8, chloride 111, bicarbonate 22, anion gap of 10, BUN 35, creatinine 1.3, estimated GFR was 52 mL per minute. His glucose was 81, calcium was 8.5. Total bilirubin, AST, ALT, alkaline phosphatase were normal. Total protein 6.5, albumin was 2.2. ASSESSMENT: 1. Influenza B treated with Tamiflu. 2. Moderate oropharyngeal dysphagia; however, the patient is now eating. 3. Generalized weakness. 4. Left basilar pneumonia. 5. Diarrhea, Clostridium difficile negative. 6. Resolved metabolic acidosis. 7. Resolved hypomagnesemia. The patient has also protein calorie malnutrition. PLAN: We have discontinued his procalamine, discontinued his Kellogg catheter, discontinued telemetry. We will probably discharge him to swing bed tomorrow. CUAUHTEMOC NARAYAN MD DR: JHON/josiane JOB#: [id number] / [id number]
[2017-11-30] MEDS: INSULN ASP PRT/INSULIN ASPART 300 UNITS/3 ML INSULN.PEN. SQ SCH ×2 (09:00→21:16)
[2017-11-30] MEDS: ASPIRIN/DIPYRIDAMOLE 200/25MG CAP.ER.12H PO SCH ×2 (10:26→21:00)
[2017-11-30] MEDS: LACTOBACILLUS RHAMNOSUS GG 1 CAPSULE. PO SCH ×2 (10:26→21:00)
[2017-11-30] MEDS: ASPIRIN 81 MG TAB.CHEW PO SCH (10:26)
[2017-11-30] MEDS: CIPROFLOXACIN HCL 250 MG TABLET PO SCH ×2 (10:26→21:00)
[2017-11-30] MEDS: CILOSTAZOL 50 MG TABLET. PO SCH ×2 (10:26→21:01)
[2017-11-30] MEDS: ATENOLOL 25 MG TABLET PO SCH (10:26)
[2017-11-30] MEDS: LISINOPRIL 20 MG TABLET PO SCH (10:26)
--- NOTE | 2017-11-30 10:43 | RAD ---
Videofluoroscopic swallowing examination History: Concern for aspiration. Technique: Examination performed in conjunction with speech service. Patient was administered thin, honey, and pudding consistencies. Findings: With thin consistency, the patient demonstrated premature spillage into the vallecula and piriform sinuses. With thin consistency liquids, there was deep laryngeal penetration. No definite tracheal aspiration was identified, although it is thought that the patient is at increased risk. There is also mild hypopharyngeal residue with thin consistency. With honey and pudding consistency, there was no evidence of laryngeal penetration or tracheal aspiration with the primary swallow, although there was significant residue in the vallecula and piriform sinuses. The amount of residue was increased in severity with pudding relative to honey. From the residue, there was deep laryngeal penetration, at times extending to the level of the cords. No definite aspiration was identified, although it is thought that patient is at increased risk for aspiration from the residue. Patient was unable to understand cue for dry swallowing or cough in attempt to clear the penetrated material. Given the above findings, it was decided not to administer solid to the patient. Fluoroscopic time was 5.5 minutes. Secondary to technical issues, fluoroscopic images could not be sent to the PACS and the video recording system was not available. Impression: 1. With all trials, the patient demonstrated deep laryngeal penetration. While under fluoroscopy, tracheal aspiration was not confidently seen, it is thought that the patient is at significant risk for subsequent aspiration with all of the tested materials. Please see speech service report for more information.
[2017-11-30 12:30] VITALS: BP 148/76
[2017-11-30 15:05] VITALS: BP 133/84
[2017-11-30] MEDS: IV NORMAL SALINE 1,000ML 1,000 ML IV SCH (19:32)
[2017-11-30 19:52] VITALS: BP 128/86
[2017-11-30] MEDS: ATORVASTATIN CALCIUM 20 MG TABLET PO SCH (21:00)
[2017-11-30 22:49] VITALS: BP 136/72
[2017-12-01] MEDS: IV NORMAL SALINE 1,000ML 1,000 ML IV SCH (05:02)
[2017-12-01 05:25] VITALS: BP 138/72
[2017-12-01] MEDS: IPRATRPIUM/ALBUTEROL 0.5/2.5MG 3 ML NEBU. NEB SCH ×2 (05:37→10:59)
[2017-12-01 07:10] LABS: ALBUMIN 2.3 g/dL (3.4-5.0); ALBUMIN/GLOBULIN RATIO 0.6 (1.0-1.7); CALCIUM 8.1 mg/dL (8.5-10.1); CREATININE 1.3 mg/dL (0.7-1.3); GFR 52.5; POTASSIUM 3.4 mmol/L (3.5-5.1); TOTAL BILIRUBIN 0.3 mg/dL (0.2-1.0); TOTAL PROTEIN 6.4 g/dL (6.4-8.2)
[2017-12-01] MEDS: INSULIN ASPART 300 UNITS/3 ML INSULN.PEN SQ SCH ×2 (08:02→12:34)
[2017-12-01 08:29] LABS: BASO % 0 % (0-3); EOS # 0.1 x10^3/uL (0.0-0.7); EOS % 3 % (0-3); HEMATOCRIT 39.8 % (39.0-53.0); LYMPH # 1.2 x10^3/uL (1.0-4.8); LYMPH % 29 % (24-48); MEAN CORPUSCULAR HEMOGLOBIN 28 pg (25-35); MEAN CORPUSCULAR HGB CONC 33 g/dL (31-37); MEAN CORPUSCULAR VOLUME 85 fL (79-100); MONO # 0.5 x10^3/uL (0.0-1.1); MONO % 13 % (0-9); NEUT # 2.3 x10^3uL (1.8-7.7); NEUT % 55 % (31-73); PLATELET COUNT 183 x10^3/uL (140-400); RED BLOOD COUNT 4.71 x10^6/uL (4.30-5.70); RED CELL DISTRIBUTION WIDTH 13.5 % (11.5-14.5); WHITE BLOOD COUNT 4.2 x10^3/uL (4.0-11.0)
[2017-12-01] MEDS: CIPROFLOXACIN HCL 250 MG TABLET PO SCH (08:58)
[2017-12-01] MEDS: ASPIRIN 81 MG TAB.CHEW PO SCH (08:58)
[2017-12-01] MEDS: ASPIRIN/DIPYRIDAMOLE 200/25MG CAP.ER.12H PO SCH (08:58)
[2017-12-01] MEDS: ATENOLOL 25 MG TABLET PO SCH (08:58)
[2017-12-01] MEDS: LISINOPRIL 20 MG TABLET PO SCH (08:58)
[2017-12-01] MEDS: LACTOBACILLUS RHAMNOSUS GG 1 CAPSULE. PO SCH (08:58)
[2017-12-01] MEDS: CILOSTAZOL 50 MG TABLET. PO SCH (09:00)
[2017-12-01] MEDS: INSULN ASP PRT/INSULIN ASPART 300 UNITS/3 ML INSULN.PEN. SQ SCH (09:00)
--- NOTE | 2017-12-01 09:05 | PN ---
DATE: 11/30/2017 SUBJECTIVE: The patient is resting, slightly propped up in bed, in no apparent respiratory distress. He is awake, alert. Denied any complaint, however, the speech therapist did a video swallowing evaluation and her recommendation is that he should be n.p.o., need for alternative nutrition, hydration ____ planning. So, we have spoken to the patient and his family and they are still debating the decision to go to make whether to go ahead and place a feeding tube and/or take chances and continue eating knowing that the patient is at high risk for aspiration. PHYSICAL EXAMINATION: GENERAL: When I saw him this afternoon, he looked well and was clearly in no apparent respiratory distress, pale, but no jaundice, cyanosis or thyromegaly. No jugular venous distention. No limb edema. VITAL SIGNS: Heart rate was 78, blood pressure was 133/84, temperature was 97.4, respiratory rate 20, and oxygen saturation was 98% on room air. HEAD, EYES, EARS, NOSE AND THROAT: Showed normocephalic, atraumatic. NECK: Supple. HEART: Showed normal first and second sounds. No gallop, rub or murmur. CHEST: Clear to auscultation. No crepitation or rhonchi. ABDOMEN: Distended, soft, nontender. NEUROLOGIC: He was grossly intact. His intake over the last 24 hours was 360, output was 300. LABORATORY DATA: Showed a white cell count of 3800, hemoglobin 13, hematocrit 40, MCV 84 and platelet count of 136,000. His chemistry showed a serum sodium 143, potassium 3.8, chloride 111, bicarbonate 22, anion gap of 10, BUN 35, creatinine 1.3, estimated GFR was 52 mL per minute. His glucose was 81, calcium was 96. Total calcium was 8.5. Total bilirubin, AST, ALT, alkaline phosphatase were normal. Total protein was 6.5, albumin 2.2. ASSESSMENT: 1. Influenza B, treated with Tamiflu. 2. Moderate oropharyngeal dysphagia. The patient apparently failed his video swallowing evaluation and he is now considered very high risk. He was evaluated by the speech therapist and her recommendation was n.p.o., need for alternative nutrition, hydration ____ planning. 3. Generalized weakness. 4. Left basilar pneumonia. 5. Diarrhea, however, his Clostridium difficile toxins were negative. 6. Metabolic acidosis, resolved with no hypomagnesemia. 7. Severe protein calorie malnutrition. PLAN: He is now n.p.o. We will start him on IV fluid in the form of D5 half normal at 75 mL and await the family decision. Repeat his lab work tomorrow. CUAUHTEMOC NARAYAN MD DR: JHON/josiane JOB#: [id number] / [id number]
[2017-12-01 11:05] VITALS: BP 137/79
--- NOTE | 2017-12-01 22:34 | DS ---
DATE OF DISCHARGE: 12/01/2017 DISCHARGE SUMMARY HISTORY OF PRESENT ILLNESS AND HOSPITAL COURSE: The patient is an 87-year-old male patient who was admitted originally on 11/23/2017 with cough, fever, runny nose, muscle aches, and generalized fatigue. He has also while in the Emergency Room, was found to have influenza positive with a temperature of 101 and further evaluation showed that he has left basilar pneumonia, likely due to aspiration and he had also at that time diarrhea; however, C. diff was negative. He was treated with Tamiflu as well as IV antibiotics and his urine culture ultimately has grown Klebsiella pneumoniae as well as Staphylococcus haemolyticus and both were sensitive to ciprofloxacin. He did generally well. However, he did not do well on his video swallowing evaluation. In fact, the speech therapy recommended n.p.o. and to consider PEG tube placement; however, after a lengthy discussion with the family, they decided to go home and to use pureed diet and thickened liquid and to take their chances as apparently he has his choking episodes long time ago. PHYSICAL EXAMINATION: GENERAL: When I saw him today, he looked well and was clearly in no apparent respiratory distress, pale. No jaundice, cyanosis, or thyromegaly. No jugular venous distension. No limb edema. VITAL SIGNS: His heart rate was 85, blood pressure 137/79, temperature was 97.5, respiratory rate 20, and oxygen saturation was 98%. HEAD, EYES, EARS, NOSE AND THROAT: Showed normocephalic, atraumatic. NECK: Supple. HEART: Showed normal first and second sounds. No gallop, rub, or murmur. CHEST: Clear to auscultation. No crepitation or rhonchi. ABDOMEN: Distended, soft, nontender. NEUROLOGIC: He is more awake, alert, responding appropriately. Cranial nerves intact. He moves extremities without difficulty, ambulates with a walker. His intake was 360, output was 300. LABORATORY DATA: His lab work this morning showed a white cell count 4200, hemoglobin 13, hematocrit 39, MCV 85 and platelet count 283,000. His chemistry showed a serum sodium of 147, potassium 3.4, chloride 114, bicarbonate 22, anion gap of 11, BUN 29, creatinine 1.3, estimated GFR was 53 mL per minute. His glucose was 54, calcium was 8.1. Total bilirubin, AST, ALT, alkaline phosphatase were normal. Total protein 6.4, albumin 2.3. DISCHARGE MEDICATIONS: The patient will be discharged home to continue aspirin 81 mg once a day, dipyridamole for Aggrenox 1 tablet twice a day, cilostazol 50 mg p.o. b.i.d. He is on NovoLog 70/30 FlexPen 6 units subcutaneously b.i.d., Crestor 10 mg at bedtime, atenolol 25 mg once a day, lisinopril 20 mg once a day. FINAL DISCHARGE DIAGNOSES: 1. Influenza B treated with Tamiflu. 2. Moderate oropharyngeal dysphagia. The patient apparently has failed his video swallowing evaluation. He is now considered high risk for aspiration. However, the family decided to go home to continue with pureed diet and nectar thickened liquid. 3. Generalized weakness, improving. 4. Left basilar pneumonia, resolving. 5. Diarrhea, resolved. His C. diff toxins are negative. 6. Metabolic acidosis, resolved. 7. Hypomagnesemia, also resolved. 8. Severe protein-calorie malnutrition. 9. He has also polymicrobial urinary tact infection, both sensitive to ciprofloxacin. CUAUHTEMOC NARAYAN MD DR: JHON/josiane JOB#: [id number] / [id number]
== END 2017-12-01 16:18 | disposition home health service (06) | DRG 177 ==
LOC: ER 19:46 → ICU 22:00 → 1 SOUTH 11-27 18:31
PROVIDERS: ADMIT Family Medicine; ATTEND Family Medicine
DX: J69.0 Pneumonitis due to inhalation of food and vomit (principal); E43 Unspecified severe protein-calorie malnutrition; E87.2 Acidosis; E11.65 Type 2 diabetes mellitus with hyperglycemia; N19 Unspecified kidney failure; I44.1 Atrioventricular block, second degree; E83.42 Hypomagnesemia; E86.0 Dehydration; R65.10 Systemic inflammatory response syndrome (SIRS) of non-infectious origin without acute organ dysfunction; N39.0 Urinary tract infection, site not specified; B96.1 Klebsiella pneumoniae [K. pneumoniae] as the cause of diseases classified elsewhere; J10.1 Influenza due to other identified influenza virus with other respiratory manifestations; D72.819 Decreased white blood cell count, unspecified; E78.5 Hyperlipidemia, unspecified; G14 Postpolio syndrome; R13.12 Dysphagia, oropharyngeal phase; R19.7 Diarrhea, unspecified; B95.7 Other staphylococcus as the cause of diseases classified elsewhere; I10 Essential (primary) hypertension; Z86.73 Personal history of transient ischemic attack (TIA), and cerebral infarction without residual deficits; Z68.24 Body mass index [BMI] 24.0-24.9, adult
CPT/HCPCS: 36415; 71045; 74018; 74230; 80048; 80053; 80076; 81001; 82947; 83605; 83690; 83735; 83880; 84484; 85025; 85027; 87086; 87186; 87324; 87641; 87804; 92526; 93005; 94640; 96360; J0456; J0696; J1815; J2405; J3475; J3490; J7040; J7050; J7620; 92610; 92611; 97110; 97116; 97530; 97535; 99285-25; J7030

== ENCOUNTER 2018-11-02 12:37 | Inpatient (IN) | payer MEDICARE, OTHER ==
[2018-11-02] VITALS (7 sets, daily range): BP systolic 106–203; BP diastolic 58–106
[~2018-11-02] VITALS: Ht 170.2 cm; Wt 74.0 kg
[~2018-11-02 12:37] MED LIST: ASPI-612 PO; ASPI1CPM6 PO; CILO50TA PO; INSU100I16 SUBCUT; ROSU10TA25 PO; atenolol PO; lisinopril/HCTZ PO
[2018-11-02] MEDS ORDERED: IV NORMAL SALINE 500ML 500 ML IV ONE (13:15)
--- NOTE | 2018-11-02 13:25 | RAD ---
EXAM: Chest, single view. HISTORY: Cough and fever. COMPARISON: 11/23/2017 FINDINGS: A frontal view of the chest is obtained. There is suspected left lower lobe atelectasis. There is no consolidation, pleural effusion or pneumothorax. The heart is normal in size. 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 IMPRESSION: Suspected left lower lobe atelectasis. Electronically signed by: Sil Donahue MD (11/02/2018 1:21 PM) [place] [id number]
[2018-11-02 13:45] LABS: BASO % 1 % (0-3); EOS % 1 % (0-3); HEMATOCRIT 41.5 % (39.0-53.0); HEMOGLOBIN 13.2 g/dL (13.0-17.5); LYMPH # 0.3 x10^3/uL (1.0-4.8); LYMPH % 9 % (24-48); MEAN CORPUSCULAR HEMOGLOBIN 27 pg (25-35); MEAN CORPUSCULAR HGB CONC 32 g/dL (31-37); MEAN CORPUSCULAR VOLUME 84 fL (79-100); MONO # 0.3 x10^3/uL (0.0-1.1); MONO % 9 % (0-9); NEUT # 3.2 x10^3uL (1.8-7.7); NEUT % 81 % (31-73); PLATELET COUNT 165 x10^3/uL (140-400); RED BLOOD COUNT 4.93 x10^6/uL (4.30-5.70); RED CELL DISTRIBUTION WIDTH 14.7 % (11.5-14.5)
[2018-11-02 13:52] LABS: INFLUENZA A PATIENT NEGATIVE (NEGATIVE); INFLUENZA B PATIENT NEGATIVE (NEGATIVE)
[2018-11-02 13:58] LABS: ALBUMIN 2.9 g/dL (3.4-5.0); ALBUMIN/GLOBULIN RATIO 0.7 (1.0-1.7); CALCIUM 7.9 mg/dL (8.5-10.1); CREATININE 2.3 mg/dL (0.7-1.3); GFR 27.1; POTASSIUM 5.1 mmol/L (3.5-5.1); TOTAL BILIRUBIN 0.2 mg/dL (0.2-1.0); TOTAL PROTEIN 7.2 g/dL (6.4-8.2)
[2018-11-02] MEDS ORDERED: IV NORMAL SALINE 1,000ML 1,000 ML IV SCH (14:10)
--- NOTE | 2018-11-02 14:10 | PHYS DOC ---
Past History Past Medical History: Diabetes, High Cholesterol, Hypertension, Stroke Past Surgical History: Other Additional Past Surgical Histo: HERNI REPAIR AND LAMINECTOMY, ROTATOR CUFF REPAIR Smoking: Non-smoker Alcohol Use: None Drug Use: None Adult General Chief Complaint Chief Complaint: FLU SYMPTOM HPI HPI 88-year-old male presenting to the emergency department today with cough and flulike symptoms for 5 days. He describes myalgias fevers chills. 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 His cough is productive with a yellow sputum. Location lungs. Review of systems is negative for headache neck stiffness abdominal pain nausea vomiting chest pain. All other review of systems is negative unless otherwise noted in history of present illness. ED course: 88 old male presenting the emergency department with a cough and a fever. Afebrile here in the emergency room. Heart rate is within normal limits. Saturating well on room air. X-ray obtained which shows no signs of pneumonia. Blood work shows acute kidney injury. Influenza testing negative. CBC within normal limits. Patient symptoms are quite consistent with pneumonia, chest x-ray could be a false negative. We'll give IV antibiotics IV fluids and admit the patient to the hospital. Dr. Avery except the patient for admission. Review of Systems Review of Systems SEE ABOVE. Current Medications Current Medications Current Medications Medications (Trade) Dose Ordered Sig/Callum Start Time Stop Time Status Last Admin Dose Admin Sodium Chloride 500 ml @ 0 mls/hr 1X ONCE 11/02/18 13:15 11/02/18 13:16 DC 11/02/18 13:19 500 MLS/HR Allergies Allergies Allergies Coded Allergies Type Severity Reaction Last Updated Verified No Known Drug Allergies 11/29/16 No Physical Exam Physical Exam SEE ABOVE Constitutional: Well developed, well nourished, no acute distress, non-toxic appearance. [] HENT: Normocephalic, atraumatic, bilateral external ears normal, oropharynx moist, no oral exudates, nose normal. [] Eyes: PERRLA, EOMI, conjunctiva normal, no discharge. [] Neck: Normal range of motion, no tenderness, supple, no stridor. [] Cardiovascular:Heart rate regular rhythm, no murmur [] Lungs & Thorax: Mild wheezing bilaterally. No crackles. Abdomen: Bowel sounds normal, soft, no tenderness, no masses, no pulsatile masses. [] Skin: Warm, dry, no erythema, no rash. [] Back: No tenderness, no CVA tenderness. [] Extremities: No tenderness, no cyanosis, no clubbing, ROM intact, no edema. [] Neurologic: Alert and oriented X 3, normal motor function, normal sensory function, no focal deficits noted. [] Psychologic: Affect normal, judgement normal, mood normal. [] Current Patient Data Vital Signs Vital Signs Date Time Temp Pulse Resp B/P (MAP) Pulse Ox O2 Delivery O2 Flow Rate FiO2 11/02/18 12:55 99.2 124 18 98 Room Air Lab Results Laboratory Tests Test 11/02/18 12:58 11/02/18 13:34 Influenza Type A (Rapid) Negative (NEGATIVE) Influenza Type B (Rapid) Negative (NEGATIVE) White Blood Count 4.0 x10^3/uL (4.0-11.0) Red Blood Count 4.93 x10^6/uL (4.30-5.70) Hemoglobin 13.2 g/dL (13.0-17.5) Hematocrit 41.5 % (39.0-53.0) Mean Corpuscular Volume 84 fL (79-100) Mean Corpuscular Hemoglobin 27 pg (25-35) Mean Corpuscular Hemoglobin Concent 32 g/dL (31-37) Red Cell Distribution Width 14.7 % (11.5-14.5) H Platelet Count 165 x10^3/uL (140-400) Neutrophils (%) (Auto) 81 % (31-73) H Lymphocytes (%) (Auto) 9 % (24-48) L Monocytes (%) (Auto) 9 % (0-9) Eosinophils (%) (Auto) 1 % (0-3) Basophils (%) (Auto) 1 % (0-3) Neutrophils # (Auto) 3.2 x10^3uL (1.8-7.7) Lymphocytes # (Auto) 0.3 x10^3/uL (1.0-4.8) L Monocytes # (Auto) 0.3 x10^3/uL (0.0-1.1) Eosinophils # (Auto) 0.0 x10^3/uL (0.0-0.7) Basophils # (Auto) 0.0 x10^3/uL (0.0-0.2) Sodium Level 140 mmol/L (136-145) Potassium Level 5.1 mmol/L (3.5-5.1) Chloride Level 108 mmol/L (98-107) H Carbon Dioxide Level 21 mmol/L (21-32) Anion Gap 11 (6-14) Blood Urea Nitrogen 40 mg/dL (8-26) H Creatinine 2.3 mg/dL (0.7-1.3) H Estimated GFR (Cockcroft-Gault) 27.1 BUN/Creatinine Ratio 17 (6-20) Glucose Level 91 mg/dL (70-99) Calcium Level 7.9 mg/dL (8.5-10.1) L Total Bilirubin 0.2 mg/dL (0.2-1.0) Aspartate Amino Transferase (AST) 31 U/L (15-37) Alanine Aminotransferase (ALT) 23 U/L (16-63) Alkaline Phosphatase 79 U/L (46-116) Total Protein 7.2 g/dL (6.4-8.2) Albumin 2.9 g/dL (3.4-5.0) L Albumin/Globulin Ratio 0.7 (1.0-1.7) L EKG EKG [] Radiology/Procedures Radiology/Procedures [] Course & Med Decision Making Course & Med Decision Making Pertinent Labs and Imaging studies reviewed. (See chart for details) [] Dragon Disclaimer Dragon Disclaimer This electronic medical record was generated, in whole or in part, using a voice recognition dictation system. Departure Departure: Impression: Primary Impression: Fever Additional Impressions: Cough Acute kidney injury Disposition: ADMITTED INPATIENT Admitting Physician: Bernardo Latham Condition: STABLE Referrals: CATARINO CHAIREZ MD (PCP) Problem Qualifiers ANGIE ONEILL MD Nov 02, 2018 14:10
[2018-11-02] MEDS ORDERED: cefTRIAXone SODIUM 1 GM VIAL IV ONE (14:23)
[2018-11-02] MEDS ORDERED: IV NORMAL SALINE 50ML 50 ML ONE (14:23)
[2018-11-02] MEDS ORDERED: AZITHROMYCIN 500 MG VIAL. IV ONE (14:28)
[2018-11-02] MEDS ORDERED: IV NORMAL SALINE 250ML 250 ML ONE (14:28)
[2018-11-02] MEDS ORDERED: IPRATRPIUM/ALBUTEROL 0.5/2.5MG 3 ML NEBU. NEB ONE (14:30)
[2018-11-02] MEDS ORDERED: AZITHROMYCIN 500 MG in IV NORMAL SALINE 250ML 250 ML IV ONE (14:45)
[2018-11-02] MEDS ORDERED: LISI1TAB3 PO (16:06)
[2018-11-02] MEDS ORDERED: METO-239 PO (16:06)
[2018-11-02] MEDS ORDERED: DEXTROSE 50% 25 GM / 50ML DISP.SYRIN. IV PRN (17:30)
[2018-11-02 17:31] LABS: BGAS PH 7.28 (7.35-7.46)
--- NOTE | 2018-11-02 17:48 | HP ---
ADMIT DATE: 11/02/2018 HISTORY OF PRESENT ILLNESS: The patient is an 88-year-old male patient who came to the Emergency Room complaining of recurrent bouts of cough, shortness of breath. He was seen in the Emergency Room, was extensively investigated. His lab work showed his white cell count to be 4000. His chemistry showed that he is in acute kidney injury. His BUN and creatinine has risen to 40 and 2.3. His influenza A and B were negative and his chest x-ray showed that there is suspected left lower lobe atelectasis. There is no consolidation, pleural effusion or pneumothorax. The heart is normal in size. 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 The patient was admitted with sepsis likely to aspiration pneumonia. He is known to have dysphagia. He is normal at home on mechanically soft diet with nectar thickened liquid. We will start him on IV fluid and IV antibiotic. 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 PAST SURGICAL HISTORY: Significant for hernia repair, laminectomy and rotator cuff repair. ALLERGIES: He has no known drug allergies. FAMILY HISTORY: Unremarkable. 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 REVIEW OF SYSTEMS: As per history of present illness. MEDICATIONS: He is currently on following medications: He is on cilostazol 50 mg twice a day, Crestor 10 mg at bedtime, aspirin dipyridamole 1 capsule twice a day, metoprolol succinate 25 mg daily, Lisinopril/hydrochlorothiazide 10/12.5 mg daily and he is on NovoLog 70/30 FlexPen 6 units subcutaneously twice a day. PHYSICAL EXAMINATION: GENERAL: When I examined him, he was sitting in his chair, clearly tachypneic with recurrent bouts of cough that seems to be productive. There was no pallor, jaundice, cyanosis. No lymphadenopathy or thyromegaly. No jugular venous distension. No lower limb edema. VITAL SIGNS: His heart rate was 127, blood pressure was 163/79, temperature was 98.3, respiratory rate 26 and oxygen saturation was 94% on room air. HEAD, EYES, EAR, NOSE AND THROAT: Showed he is normocephalic, atraumatic. NECK: Supple. HEART: Showed normal first and second heart sounds. No gallop, rub or murmur. CHEST: Clear to auscultation. No crepitation or rhonchi. Has central trachea, equally reduced expansion, reduced air entry, vesicular breath sounds, very few scattered rhonchi and bilateral crepitation. ABDOMEN: Distended, soft, nontender. No guarding or rigidity. No organomegaly. Hernial orifice intact. Bowel sounds normal. NEUROLOGIC: He is awake, alert, somewhat confused. All his cranial nerves seem to be grossly intact. EXTREMITIES: He moves extremities without difficulty. According to the family, he was supposed to be walking with a walker, but he rarely use it and he walks unassisted at home. LABORATORY DATA: On arrival showed a white cell count 4000, hemoglobin 13, hematocrit 41, MCV 84, and platelet count of 165,000. His chemistry showed a serum sodium 140, potassium 5.1, chloride 108, bicarbonate 21, anion gap of 11, BUN 40, creatinine 2.3, estimated GFR was 27 mL per minute. His glucose was 91, calcium was 7.9. Total bilirubin 0.2, AST, ALT, alkaline phosphatase were normal. Total protein was 7.2, albumin was 2.9. His influenza A and B were negative. His chest x-ray showed that there is suspected left lower lobe atelectasis. There is no consolidation, no pleural effusion or pneumothorax. The heart is normal in size. 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 ASSESSMENT AND PLAN: My plan is to admit him with probably aspiration pneumonia. We will continue with IV fluid as he has also acute kidney injury. His creatinine has risen from a previous value of 1.3 to 2.3 today and his BUN has risen from 23 to 40. I will hold his lisinopril and hydrochlorothiazide. He has also mild hyperkalemia. We will monitor that closely. I will also arrange for him to have blood gases and we will admit him to the ICU for closer monitoring. CUAUHTEMOC NARAYAN MD DR: JHON/josiane JOB#: [id number] / [id number]
[2018-11-02] MEDS ORDERED: ACETAMINOPHEN 325 MG TABLET PO PRN (19:45)
[2018-11-02] MEDS ORDERED: ALBUTEROL SULFATE 2.5 MG/3 ML NEBU. NEB PRN (19:45)
[2018-11-02] MEDS: IV NORMAL SALINE 1,000ML 1,000 ML IV SCH (19:45)
[2018-11-02] MEDS: IPRATRPIUM/ALBUTEROL 0.5/2.5MG 3 ML NEBU. NEB SCH (20:00)
[2018-11-02] MEDS ORDERED: HALOPERIDOL LACT 5 MG/ML VIAL. IM PRN (20:30)
[2018-11-02] MEDS ORDERED: LORazepam 2 MG/ML VIAL IV PRN (20:30)
[2018-11-02] MEDS ORDERED: ACETAMINOPHEN 650 MG SUPP.RECT. ONE (20:33)
[2018-11-02] MEDS: VANCOMYCIN PER PHARMACY MC PRN (20:51)
[2018-11-02] MEDS: ASPIRIN/DIPYRIDAMOLE 200/25MG CAP.ER.12H PO SCH (21:00)
[2018-11-02] MEDS: ATORVASTATIN CALCIUM 20 MG TABLET PO SCH (21:00)
[2018-11-02] MEDS ORDERED: INSULN ASP PRT/INSULIN ASPART 300 UNITS/3 ML INSULN.PEN. SQ SCH (21:00)
[2018-11-02] MEDS: CILOSTAZOL 50 MG TABLET. PO SCH (21:00)
[2018-11-02] MEDS ORDERED: VANCOMYCIN 2 GM in IV NORMAL SALINE 500ML 500 ML IV ONE (21:00)
[2018-11-02] MEDS: PIPERACILLIN/TAZOBACTAM 2.25 GM in IV NORMAL SALINE 50ML 50 ML IV SCH (21:07)
[2018-11-03] VITALS (19 sets, daily range): BP systolic 118–183; BP diastolic 59–91
[2018-11-03] MEDS: PIPERACILLIN/TAZOBACTAM 2.25 GM in IV NORMAL SALINE 50ML 50 ML IV SCH ×4 (01:40→20:55)
[2018-11-03] MEDS ORDERED: ACETAMINOPHEN 650 MG SUPP.RECT. PR PRN (05:15)
[2018-11-03] MEDS: IPRATRPIUM/ALBUTEROL 0.5/2.5MG 3 ML NEBU. NEB SCH ×4 (05:40→20:31)
[2018-11-03 06:37] LABS: BASO % 0 % (0-3); EOS % 0 % (0-3); HEMOGLOBIN 12.2 g/dL (13.0-17.5); LYMPH # 0.5 x10^3/uL (1.0-4.8); LYMPH % 9 % (24-48); MEAN CORPUSCULAR HEMOGLOBIN 27 pg (25-35); MEAN CORPUSCULAR HGB CONC 32 g/dL (31-37); MEAN CORPUSCULAR VOLUME 84 fL (79-100); MONO # 0.5 x10^3/uL (0.0-1.1); MONO % 10 % (0-9); NEUT # 4.5 x10^3uL (1.8-7.7); NEUT % 81 % (31-73); PLATELET COUNT 152 x10^3/uL (140-400); RED BLOOD COUNT 4.52 x10^6/uL (4.30-5.70); RED CELL DISTRIBUTION WIDTH 14.4 % (11.5-14.5); WHITE BLOOD COUNT 5.6 x10^3/uL (4.0-11.0)
[2018-11-03 06:47] LABS: ALBUMIN 2.5 g/dL (3.4-5.0); ALBUMIN/GLOBULIN RATIO 0.6 (1.0-1.7); CALCIUM 7.5 mg/dL (8.5-10.1); CREATININE 2.3 mg/dL (0.7-1.3); GFR 27.1; POTASSIUM 5.1 mmol/L (3.5-5.1); TOTAL BILIRUBIN 0.3 mg/dL (0.2-1.0); TOTAL PROTEIN 6.4 g/dL (6.4-8.2)
[2018-11-03] MEDS: INSULIN LISPRO 300 UNITS/3 ML INSULN.PEN. SQ SCH ×3 (08:00→17:29)
[2018-11-03] MEDS: ASPIRIN/DIPYRIDAMOLE 200/25MG CAP.ER.12H PO SCH ×2 (08:50→20:55)
[2018-11-03] MEDS: LACTOBACILLUS RHAMNOSUS GG 1 CAPSULE. PO SCH ×2 (08:50→20:55)
[2018-11-03] MEDS: METOPROLOL SUCC 24HR ER 25 MG TAB.ER.24H. PO SCH (08:50)
[2018-11-03] MEDS: CILOSTAZOL 50 MG TABLET. PO SCH ×2 (08:51→20:54)
[2018-11-03] MEDS: IV NORMAL SALINE 1,000ML 1,000 ML IV SCH (13:07)
[2018-11-03] MEDS: methylPREDNISolone SOD SUCC PF 40 MG/ML VIAL. IV SCH ×2 (14:11→20:54)
--- NOTE | 2018-11-03 14:26 | RAD ---
CHEST AP ONLY History: WORSENING SHORTNESS OF BREATH. Comparison: November 02, 2018. Cardiomediastinal silhouette: Stable Lungs: Mild markings in left lung base compatible with mild atelectasis. Pleura: No definite effusion. Pneumothorax: None visualized Support Devices: None. Impression: Mild markings or atelectasis in left lung base appears similar. Electronically signed by: Haroon Zhao MD (11/03/2018 2:22 PM) [id number]
--- NOTE | 2018-11-03 14:30 | EKG ---
[address] [address] Test Date: 2018-11-02 Test Time: 14:07:03 Pat Name: RACQUEL ENGEL Department: Room: [facility] 1 Gender: M Child Nurse: : 1930 Requested By: CUAUHTEMOC NARAYAN Order Number: [id number] Reading MD: Amadou Chaidez Measurements Intervals [place] Rate: 115 P: 34 [place]: 134 QRS: 38 QRSD: 72 T: 74 QT: 312 QTc: 433 Interpretive Statements SINUS TACHYCARDIA QRS(T) CONTOUR ABNORMALITY CONSIDER ANTEROLATERAL MYOCARDIAL DAMAGE Electronically Signed On 11-11-2018 19:08:32 [employer] by Amadou Chaidez
--- NOTE | 2018-11-03 18:42 | PN ---
DATE: 11/03/2018 SUBJECTIVE: The patient is an 88-year-old male patient who was admitted yesterday with increasing shortness of breath and cough. He was extensively investigated. He was found to have an acute on chronic kidney injury and was admitted with a diagnosis of aspiration pneumonia. He was also found to have acute on chronic kidney injury as well as mild hyperkalemia. He has also metabolic acidosis, although it is not clear what initiated as he is not hypoglycemic and his lactic acid was normal. We did start him on IV antibiotic in the form of vancomycin as well as Zosyn together with the albuterol sulfate as well as DuoNeb. OBJECTIVE: GENERAL: When I saw him this afternoon, he was resting slightly propped up in bed, slightly tachypneic. However, there is no pallor, jaundice, cyanosis, lymphadenopathy or thyromegaly. No jugular venous distension. No lower limb edema. VITAL SIGNS: Her heart rate was 98, blood pressure 157/79, temperature was 99.4, respiratory rate was 22 and oxygen saturation was 97% on room air. HEAD, EYES, EARS, NOSE AND THROAT: Showed normocephalic, atraumatic. NECK: Supple. HEART: Showed normal first and second sounds. No gallop, rub or murmur. CHEST: Chest showed central trachea, equally reduced expansion, reduced air entry in the bilateral scattered rhonchi with very few crepitation. ABDOMEN: Distended, soft, nontender. NEUROLOGIC: He was awake, alert, responding appropriately. All cranial nerves intact. He moves upper extremities to much greater extent than lower extremities. His intake was 2213. No output was recorded. LABORATORY DATA: As of this morning, his serum sodium was 140, potassium 5.1, chloride 110, bicarbonate 17, anion gap of 14, BUN 40, creatinine 2.3, estimated GFR was 27 mL per minute. Glucose 119. His calcium was 7.4. Total bilirubin, AST, ALT, alkaline phosphatase were normal. His total protein was 6.4, albumin 2.5. His white cell count was 5600, hemoglobin 12.2, hematocrit 38, MCV 84 and platelet count of 152,000. His blood gases showed a pH of 7.28, pCO2 of 30, pO2 of 81, bicarbonate was 26 and oxygen saturation was 94% on FiO2 of 21%. His influenza A and B were negative. ASSESSMENT: This is an 88-year-old male patient who is known to have stroke in 2008. 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 He does also have dysphagia and he came with recurrent bouts of cough and shortness of breath, was diagnosed with possible aspiration pneumonia and also acute on chronic kidney injury, continued to have mild hyperkalemia. PLAN: My plan is to add steroids. Continue with the IV fluid, continue with IV antibiotic as well as bronchodilator. We have consulted the speech therapy as well as physical and occupational therapy. CUAUHTEMOC NARAYAN MD DR: JHON/josiane JOB#: [id number] / [id number]
[2018-11-03] MEDS: ATORVASTATIN CALCIUM 20 MG TABLET PO SCH (20:55)
[2018-11-04] VITALS (20 sets, daily range): BP systolic 132–169; BP diastolic 70–98
[2018-11-04 00:06] LABS: BILIRUBIN,URINE NEG (NEG); CLARITY,URINE HAZY; COLOR,URINE STRAW; GLUCOSE,URINE >=1000 mg/dL (NEG); NITRITE,URINE NEG (NEG); UROBILINOGEN,URINE 0.2 mg/dL (0.2 mg/dL); WBC,URINE 0 /HPF (0-4)
[2018-11-04 00:07] LABS: AMORPHOUS SEDIMENT,UR PRESENT /HPF; BACTERIA,URINE FEW /HPF (0-FEW); SQUAMOUS EPITHELIAL CELL,UR FEW /LPF
[2018-11-04] MEDS: IV NORMAL SALINE 1,000ML 1,000 ML IV SCH ×2 (01:18→12:03)
[2018-11-04] MEDS: PIPERACILLIN/TAZOBACTAM 2.25 GM in IV NORMAL SALINE 50ML 50 ML IV SCH ×4 (01:18→19:57)
[2018-11-04] MEDS: IPRATRPIUM/ALBUTEROL 0.5/2.5MG 3 ML NEBU. NEB SCH ×4 (05:16→20:58)
[2018-11-04] MEDS: methylPREDNISolone SOD SUCC PF 40 MG/ML VIAL. IV SCH ×2 (06:03→18:03)
[2018-11-04] MEDS: INSULIN LISPRO 300 UNITS/3 ML INSULN.PEN. SQ SCH ×3 (08:17→17:03)
[2018-11-04] MEDS: CILOSTAZOL 50 MG TABLET. PO SCH ×2 (08:54→22:14)
[2018-11-04] MEDS: LACTOBACILLUS RHAMNOSUS GG 1 CAPSULE. PO SCH ×2 (08:54→22:14)
[2018-11-04] MEDS: ASPIRIN/DIPYRIDAMOLE 200/25MG CAP.ER.12H PO SCH ×2 (08:54→22:14)
[2018-11-04] MEDS: METOPROLOL SUCC 24HR ER 25 MG TAB.ER.24H. PO SCH (08:55)
[2018-11-04 13:54] LABS: CALCIUM 8.2 mg/dL (8.5-10.1); CREATININE 2.3 mg/dL (0.7-1.3); GFR 27.1; POTASSIUM 3.6 mmol/L (3.5-5.1)
[2018-11-04] MEDS: INSULIN NPH/REG INSULIN 70/30 300 UNITS/3 ML INSULN.PEN. SQ SCH (17:02)
--- NOTE | 2018-11-04 20:10 | PN ---
DATE: 11/04/2018 SUBJECTIVE: The patient is sitting comfortably in his chair, in no apparent distress. He denied any chest pain or shortness of breath. His daughter said that he has a good night sleep. His cough is much improved. In fact, he is maintaining his oxygen saturations 99% on room air. OBJECTIVE: GENERAL: When I examined him, he looked well and was clearly in no apparent respiratory distress. No pallor, jaundice, cyanosis, or thyromegaly. No jugular venous distension. No limb edema. VITAL SIGNS: His heart rate was 88, blood pressure was 150/81, temperature was 98, respiratory rate was 18, his oxygen was 99% on room air. HEAD, EYES, EARS, NOSE AND THROAT: Normocephalic, atraumatic. NECK: Supple. HEART: Showed normal first and second heart sounds. No gallop, rub or murmur. CHEST: Clear to auscultation. No crepitation or rhonchi. ABDOMEN: Distended, soft, nontender. No guarding or rigidity. No organomegaly. Hernial orifice intact. Bowel sounds normal. NEUROLOGIC: He is awake, alert, responding appropriately. Cranial nerves intact. He moves extremities without difficulty. He normally ambulates without assistance or assistive device according to his daughter, although he is supposed to have a walker and a cane. His intake over the last 24 hours was 2200, no output was recorded. LABORATORY DATA: As of yesterday, his white cell count was 5600, hemoglobin 12, hematocrit 38, MCV 84 and platelet count of 152,000. His blood sugar is high as he is on steroids. Today's labs are still pending at the time of this dictation. As of yesterday, his BUN was 40, creatinine 2.3. ASSESSMENT: 1. Aspiration pneumonia. 2. Acute hypoxic respiratory failure, improving. 3. Acute on chronic kidney injury. 4. Mild hyperkalemia. 5. Postpolio syndrome. 6. Stroke with speech impairment. PLAN: Cut down his steroids to 40 mg IV twice a day. Once we have the lab work today and if the kidney function is turning the corner, I will cut down the IV fluid. Meanwhile, continue with physical and occupational therapy and antibiotic. If blood culture remains negative, we will discontinue the vancomycin tomorrow. CUAUHTEMOC NARAYAN MD DR: Gracie JOB#: [id number] / [id number]
[2018-11-04] MEDS ORDERED: VANCOMYCIN 1.25 GM in IV NORMAL SALINE 250ML 250 ML IV SCH (21:00)
[2018-11-04 21:16] LABS: VANC TR 10.9 mcg/mL (10.0-20.0)
[2018-11-04] MEDS: TAMSULOSIN 0.4 MG CAP.ER.24H. PO SCH (22:14)
[2018-11-04] MEDS: ATORVASTATIN CALCIUM 20 MG TABLET PO SCH (22:15)
[2018-11-05] VITALS (15 sets, daily range): BP systolic 119–167; BP diastolic 49–88
[2018-11-05] MEDS: VANCOMYCIN PER PHARMACY MC PRN ×2 (00:42→08:29)
[2018-11-05] MEDS: PIPERACILLIN/TAZOBACTAM 2.25 GM in IV NORMAL SALINE 50ML 50 ML IV SCH ×4 (02:18→20:13)
[2018-11-05] MEDS: IPRATRPIUM/ALBUTEROL 0.5/2.5MG 3 ML NEBU. NEB SCH ×4 (05:02→20:16)
[2018-11-05] MEDS: methylPREDNISolone SOD SUCC PF 40 MG/ML VIAL. IV SCH (06:13)
[2018-11-05 07:10] LABS: BASO % 0 % (0-3); EOS % 0 % (0-3); HEMATOCRIT 35.2 % (39.0-53.0); HEMOGLOBIN 11.1 g/dL (13.0-17.5); LYMPH # 0.4 x10^3/uL (1.0-4.8); LYMPH % 8 % (24-48); MEAN CORPUSCULAR HEMOGLOBIN 27 pg (25-35); MEAN CORPUSCULAR HGB CONC 31 g/dL (31-37); MEAN CORPUSCULAR VOLUME 85 fL (79-100); MONO # 0.3 x10^3/uL (0.0-1.1); MONO % 6 % (0-9); NEUT # 4.8 x10^3uL (1.8-7.7); NEUT % 86 % (31-73); PLATELET COUNT 138 x10^3/uL (140-400); RED BLOOD COUNT 4.13 x10^6/uL (4.30-5.70); RED CELL DISTRIBUTION WIDTH 14.4 % (11.5-14.5); WHITE BLOOD COUNT 5.5 x10^3/uL (4.0-11.0)
[2018-11-05 07:29] LABS: ALBUMIN 2.3 g/dL (3.4-5.0); ALBUMIN/GLOBULIN RATIO 0.6 (1.0-1.7); CALCIUM 7.9 mg/dL (8.5-10.1); GFR 31.8; POTASSIUM 3.4 mmol/L (3.5-5.1); TOTAL BILIRUBIN 0.2 mg/dL (0.2-1.0); TOTAL PROTEIN 6.1 g/dL (6.4-8.2)
[2018-11-05] MEDS ORDERED: POTASSIUM CHLORIDE 20 MEQ TABLET.ER. PO ONE ×2 (07:45→11:45)
[2018-11-05] MEDS ORDERED: VANCOMYCIN 1.25 GM in IV NORMAL SALINE 250ML 250 ML IV SCH ×2 (08:15→21:00)
[2018-11-05] MEDS: CILOSTAZOL 50 MG TABLET. PO SCH ×2 (08:33→21:20)
[2018-11-05] MEDS: ASPIRIN/DIPYRIDAMOLE 200/25MG CAP.ER.12H PO SCH ×2 (08:33→21:00)
[2018-11-05] MEDS: LACTOBACILLUS RHAMNOSUS GG 1 CAPSULE. PO SCH ×2 (08:33→21:20)
[2018-11-05] MEDS: METOPROLOL SUCC 24HR ER 25 MG TAB.ER.24H. PO SCH (08:34)
[2018-11-05] MEDS: INSULIN NPH/REG INSULIN 70/30 300 UNITS/3 ML INSULN.PEN. SQ SCH ×2 (08:36→17:16)
[2018-11-05] MEDS: INSULIN LISPRO 300 UNITS/3 ML INSULN.PEN. SQ SCH ×3 (08:36→17:15)
[2018-11-05] MEDS: IV NORMAL SALINE 1,000ML 1,000 ML IV SCH (08:58)
[2018-11-05] MEDS ORDERED: INSULIN LISPRO 300 UNITS/3 ML INSULN.PEN. SQ ONE (11:45)
[2018-11-05] MEDS: amLODIPine BESYLATE 10 MG TABLET PO SCH (12:03)
--- NOTE | 2018-11-05 12:17 | PN ---
DATE: 11/05/2018 SUBJECTIVE: The patient is sitting comfortably in his chair in no apparent distress. He continued to have episodes of cough, but much less than before. He is maintaining his oxygen saturation at 94-97% on room air. OBJECTIVE: GENERAL: When I examined him this morning, he looked well and was clearly in no apparent respiratory distress, slightly pale, no jaundice, cyanosis, or thyromegaly. No jugular venous distention. No limb edema. VITAL SIGNS: His heart rate was 77, blood pressure was 167/83, temperature was 97.8, respiratory rate was 14 and oxygen saturation was 97%. HEAD, EYES, EARS, NOSE, AND THROAT: Showed normocephalic, atraumatic. NECK: Supple. HEART: Showed normal first and second heart sounds with no gallop, rub, or murmur. CHEST: Clear to auscultation. No crepitation or rhonchi. ABDOMEN: Distended, soft, nontender. No guarding or rigidity. No organomegaly. All hernial orifices intact. Bowel sounds normal. NEUROLOGIC: He is awake, alert, responding appropriately. All his cranial nerves are intact. He moves extremities without difficulty. He ambulates with a walker. His intake was 2100. LABORATORY DATA: His lab work this morning showed a white cell count of 5500, hemoglobin 11, hematocrit 35, MCV 85 and platelet count of 138,000. His chemistry showed serum sodium 141, potassium 3.4, chloride 111, bicarbonate 16, anion gap of 14, BUN 41, creatinine was 2. Estimated GFR was 32 mL per minute. His glucose was 194, calcium was 7.9. Total bilirubin, AST, ALT, alkaline phosphatase were normal. His total protein was 6.1, albumin was 2.3. His vancomycin trough level was 10.9. Urinalysis was unremarkable. His influenza A and B were negative. His nasal screen for MRSA by PCR was negative. His blood cultures are so far negative ASSESSMENT: 1. Aspiration pneumonia. 2. Acute hypoxic respiratory failure, improving. 3. Acute on chronic kidney injury, slightly improving. 4. Mild hyperkalemia, resolved. 5. Postpolio syndrome. 6. Stroke with speech impediment. 7. Dysphagia. PLAN: To discontinue his IV Solu-Medrol, discontinue vancomycin. We will start him on a tapering course of steroid tomorrow. I will increase his Humulin 70/30 to his previous dose, and hopefully, he can be discharged home tomorrow. CUAUHTEMOC NARAYAN MD DR: JHON/josiane JOB#: [id number] / [id number]
[2018-11-05 16:57] LABS: CALCIUM 8.1 mg/dL (8.5-10.1); CREATININE 2.2 mg/dL (0.7-1.3); GFR 28.5; POTASSIUM 4.2 mmol/L (3.5-5.1)
[2018-11-05] MEDS: ATORVASTATIN CALCIUM 20 MG TABLET PO SCH (21:19)
[2018-11-05] MEDS: TAMSULOSIN 0.4 MG CAP.ER.24H. PO SCH (21:20)
[2018-11-06] MEDS: PIPERACILLIN/TAZOBACTAM 2.25 GM in IV NORMAL SALINE 50ML 50 ML IV SCH ×2 (02:25→08:08)
[2018-11-06 04:37] VITALS: BP 158/80
[2018-11-06] MEDS: IPRATRPIUM/ALBUTEROL 0.5/2.5MG 3 ML NEBU. NEB SCH ×2 (05:20→09:31)
[2018-11-06] MEDS: IV NORMAL SALINE 1,000ML 1,000 ML IV SCH (06:27)
[2018-11-06 06:32] LABS: CALCIUM 7.8 mg/dL (8.5-10.1); CREATININE 2.1 mg/dL (0.7-1.3); GFR 30.1; POTASSIUM 3.5 mmol/L (3.5-5.1)
[2018-11-06 06:34] VITALS: BP 153/74
[2018-11-06] MEDS: INSULIN LISPRO 300 UNITS/3 ML INSULN.PEN. SQ SCH ×2 (08:00→11:53)
[2018-11-06] MEDS ORDERED: predniSONE 20 MG TABLET PO SCH (09:00)
[2018-11-06 11:32] VITALS: BP 132/78
[2018-11-06] MEDS: ASPIRIN/DIPYRIDAMOLE 200/25MG CAP.ER.12H PO SCH (11:32)
[2018-11-06] MEDS: METOPROLOL SUCC 24HR ER 25 MG TAB.ER.24H. PO SCH (11:39)
[2018-11-06 11:41] VITALS: BP 132/78
[2018-11-06] MEDS: LACTOBACILLUS RHAMNOSUS GG 1 CAPSULE. PO SCH (11:41)
[2018-11-06] MEDS: amLODIPine BESYLATE 10 MG TABLET PO SCH (11:41)
[2018-11-06] MEDS: CILOSTAZOL 50 MG TABLET. PO SCH (11:46)
[2018-11-06] MEDS: INSULIN NPH/REG INSULIN 70/30 300 UNITS/3 ML INSULN.PEN. SQ SCH (11:53)
[2018-11-06] MEDS ORDERED: AMOX1TAB58 PO (12:40)
[2018-11-06] MEDS ORDERED: TAMS0.4C97 PO (12:54)
--- NOTE | 2018-11-06 14:07 | DS ---
DATE OF DISCHARGE: 11/06/2018 HOSPITAL COURSE: The patient is an 88-year-old male patient who was admitted on 11/02/2018 with a complaint of shortness of breath, recurrent bouts of cough, chest tightness and wheezing. He was extensively investigated in the Emergency Room. He was found to have a BUN of 40, creatinine 2.3, which definitely higher than his baseline about 2 years ago. His influenza A and B were negative. Chest x-ray showed suspected left lower lobe atelectasis versus infiltrate. There is no consolidation, pleural effusion, or pneumothorax. We did treat him with IV antibiotic. I held his lisinopril and hydrochlorothiazide and started him on IV antibiotic in the form of vancomycin as well as Zosyn together with steroids as well as bronchodilators and he did extremely well. His cough has largely subsided. His chest tightness and wheezing has completely resolved. He remained afebrile with normal white cell count throughout his stay. He was also noted to have urinary retention, but refused any Kellogg catheter. We did straight cath him once and drained about 400 mL of urine. Then, I started him on Flomax. His blood cultures showed no growth after 3 days and the patient was switched to Augmentin 500/125 twice a day and a decision was made to discharge him home to finish treatment as an outpatient with oral Augmentin as well as tapering course of steroids. PHYSICAL EXAMINATION: GENERAL: When I saw him today, he looked well and was clearly in no apparent respiratory distress. No pallor, jaundice, cyanosis, or thyromegaly. No jugular venous distension. No limb edema. VITAL SIGNS: His heart rate was 104, blood pressure was 132/78, temperature was 98.2, respiratory rate was 24, and oxygen saturation was 97% on room air. HEAD, EYES, EARS, NOSE, AND THROAT: Showed normocephalic, atraumatic. NECK: Supple. HEART: Showed normal first and second heart sounds with no gallop, rub, or murmur. CHEST: Clear to auscultation. No crepitation or rhonchi. ABDOMEN: Distended, soft, nontender. No guarding or rigidity. No organomegaly. All hernial orifice intact. Bowel sounds normal. NEUROLOGIC: He was awake, alert, responding appropriately. Extraocular movements intact. He moves extremities without difficulty. He ambulates with a walker. His intake was 2600, no output was recorded. LABORATORY DATA: His lab work as of this morning showed a white cell count 5500, hemoglobin 11, hematocrit 35, MCV 85, and a platelet count of 138,000. His chemistry showed a serum sodium 144, potassium 3.5, chloride 113, bicarbonate 15, anion gap of 16, BUN of 44, creatinine was 2.1, estimated GFR was 30 mL per minute, his glucose was 137, calcium was 7.8. DISCHARGE MEDICATIONS: He was discharged home to continue on amoxicillin 500/125 one tablet twice a day for 7 days, Aggrenox 1 capsule twice a day, cilostazol 50 mg twice a day. He is on NovoLog mix 70/30 60 units subcutaneously twice a day, lisinopril/hydrochlorothiazide 10/12.5 one tablet once a day, metoprolol succinate 25 mg once a day, and Crestor 10 mg at bedtime. He was also discharged on Flomax 0.4 mg at bedtime and a tapering course of steroids. He should follow with his primary care physician. FINAL DISCHARGE DIAGNOSES: 1. Aspiration pneumonia. 2. Acute hypoxic respiratory failure, resolved. 3. Acute on chronic kidney injury. 4. Mild hyperkalemia, resolved. 5. Post-polio syndrome. 6. Stroke with speech impediment. 7. Dysphagia. CUAUHTEMOC NARAYAN MD DR: JHON/josiane JOB#: [id number] / [id number]
[2018-11-06] MEDS ORDERED: TAMSULOSIN 0.4 MG CAP.ER.24H. PO SCH (21:00)
== END 2018-11-06 13:51 | disposition home health service (06) | DRG 871 ==
LOC: ER 12:37 → 1 SOUTH 15:21 → ICU 17:31
PROVIDERS: ADMIT Internal Medicine; ATTEND Internal Medicine
DX: A41.9 Sepsis, unspecified organism (principal); J69.0 Pneumonitis due to inhalation of food and vomit; J96.01 Acute respiratory failure with hypoxia; N17.9 Acute kidney failure, unspecified; E87.2 Acidosis; E11.22 Type 2 diabetes mellitus with diabetic chronic kidney disease; E78.00 Pure hypercholesterolemia, unspecified; E78.5 Hyperlipidemia, unspecified; E87.5 Hyperkalemia; G14 Postpolio syndrome; I12.9 Hypertensive chronic kidney disease with stage 1 through stage 4 chronic kidney disease, or unspecified chronic kidney disease; N18.9 Chronic kidney disease, unspecified; R13.10 Dysphagia, unspecified; I69.320 Aphasia following cerebral infarction; I69.328 Other speech and language deficits following cerebral infarction; I69.391 Dysphagia following cerebral infarction
CPT/HCPCS: 36415; 36600; 71045; 80048; 80053; 80202; 81001; 82803; 82947; 83605; 85025; 87040; 87641; 87804; 93005; 94640; 96374; 96375; J0456; J0696; J1815; J2060; J2543; J2920; J3370; J7040; J7050; J7512; J7620; 92610; 97110; 97116; 97530; 99285-25; J7030

== ENCOUNTER 2018-12-25 20:17 | Emergency (ER) | payer MEDICARE, OTHER ==
[~2018-12-25] VITALS: Ht 170.2 cm; Wt 75.7 kg
[~2018-12-25 20:17] MED LIST changes: +AMOX1TAB58 PO; +LISI1TAB3 PO; +METO-239 PO; +TAMS0.4C97 PO
[2018-12-25] MEDS ORDERED: IV NORMAL SALINE 500ML 500 ML IV SCH (21:00)
[2018-12-25 21:12] LABS: BASO % 1 % (0-3); EOS # 0.3 x10^3/uL (0.0-0.7); EOS % 6 % (0-3); HEMATOCRIT 39.5 % (39.0-53.0); HEMOGLOBIN 12.5 g/dL (13.0-17.5); LYMPH # 1.2 x10^3/uL (1.0-4.8); LYMPH % 27 % (24-48); MEAN CORPUSCULAR HEMOGLOBIN 27 pg (25-35); MEAN CORPUSCULAR HGB CONC 32 g/dL (31-37); MEAN CORPUSCULAR VOLUME 85 fL (79-100); MONO # 0.5 x10^3/uL (0.0-1.1); MONO % 12 % (0-9); NEUT # 2.4 x10^3uL (1.8-7.7); NEUT % 55 % (31-73); PLATELET COUNT 202 x10^3/uL (140-400); RED BLOOD COUNT 4.67 x10^6/uL (4.30-5.70); WHITE BLOOD COUNT 4.5 x10^3/uL (4.0-11.0)
[2018-12-25 21:27] LABS: ALBUMIN/GLOBULIN RATIO 0.7 (1.0-1.7); ALK PHOS 104 U/L (46-116); ALT (SGPT) 14 U/L (16-63); ANION GAP 12 (6-14); AST (SGOT) 25 U/L (15-37); BLOOD UREA NITROGEN 41 mg/dL (8-26); BUN/CREATININE RATIO 21 (6-20); CALCIUM 8.3 mg/dL (8.5-10.1); CARBON DIOXIDE 20 mmol/L (21-32); CHLORIDE 104 mmol/L (98-107); GFR 31.8; GLUCOSE 269 mg/dL (70-99); MAGNESIUM 2.4 mg/dL (1.8-2.4); SODIUM 136 mmol/L (136-145); TOTAL PROTEIN 7.3 g/dL (6.4-8.2)
[2018-12-25 21:29] LABS: TOTAL BILIRUBIN < 0.1 mg/dL (0.2-1.0)
--- NOTE | 2018-12-25 22:01 | RAD ---
PQRS Compliance statement: One or more of the following individualized dose reduction techniques were utilized for this examination: 1. Automated exposure control. 2. Adjustment of the mA and/or kV according to patient size. 3. Use of iterative reconstruction technique. Indication:MENTAL STATUS CHANGES TECHNIQUE: CT head without IV contrast COMPARISON:None FINDINGS: No pathologic extra-axial or intra-axial fluid collection. Mild to moderate diffuse atrophy with ex vacuo dilation of the ventricles. The basal cisterns are within normal limits. No acute intracranial bleed. No focal loss of fernández-white differentiation. Visualized orbits within normal limits. No suspicious calvarial lesion. Visualized paranasal sinuses and mastoid air cells are clear. IMPRESSION: 1. No acute intracranial bleed. 2. Moderate diffuse atrophy. Electronically signed by: Deepak Pagan DO (12/25/2018 9:59 PM) [facility]
--- NOTE | 2018-12-25 23:16 | PHYS DOC ---
Past History Past Medical History: Diabetes, High Cholesterol, Hypertension, Stroke, Other Past Surgical History: Other Additional Past Surgical Histo: HERNI REPAIR AND LAMINECTOMY, ROTATOR CUFF REPAIR Smoking: Non-smoker Alcohol Use: None Drug Use: None Adult General Chief Complaint Chief Complaint: WEAKNESS/GENERALIZED HPI HPI Patient is an 88-year-old male who presents with complaint of acute onset of dizziness and weakness in his legs. Patient's symptoms started at about 7:30 this evening. Patient had tried to get up him seated position when he became dizzy, feeling off balance and also weak in his legs. He denies any lateralizing weakness. Family has not noted any facial droop or speech abnormalities. He denies any chest pain or shortness of breath. He also denies any headache. He does admit to feeling off balance when he tries to stand up. Review of Systems Review of Systems Constitutional: Denies fever or chills [] Eyes: Denies change in visual acuity, redness, or eye pain [] Respiratory: Denies cough or shortness of breath [] Cardiovascular: No additional information not addressed in HPI [] Musculoskeletal: Denies back pain or joint pain [] Neurologic: Complains of dizziness and generalized weakness without focal weakness or sensory changes [] All other systems were reviewed and found to be within normal limits, except as documented in this note. Current Medications Current Medications Current Medications Medications (Trade) Dose Ordered Sig/Callum Start Time Stop Time Status Last Admin Dose Admin Sodium Chloride 500 ml @ 500 mls/hr Q1H 12/25/18 21:00 12/25/18 21:11 DC 12/25/18 21:10 500 MLS/HR Allergies Allergies Allergies Coded Allergies Type Severity Reaction Last Updated Verified No Known Drug Allergies 11/29/16 No Physical Exam Physical Exam Constitutional: Well developed, well nourished, no acute distress, non-toxic appearance. [] HENT: Normocephalic, atraumatic, bilateral external ears normal, oropharynx moist, no oral exudates, nose normal. [] Eyes: PERRLA, EOMI, conjunctiva normal, no discharge. [] Neck: Normal range of motion, no tenderness, supple, no stridor. [] Cardiovascular: Regular rate and rhythm[] Lungs & Thorax: Bilateral breath sounds clear to auscultation [] Abdomen: Bowel sounds normal, soft, no tenderness. [] Skin: Warm, dry, no erythema, no rash. [] Extremities: No tenderness, no cyanosis, no clubbing, ROM intact, no edema. [] Neurologic: Awake and alert, normal motor function, normal sensory function, no focal deficits noted. [] Current Patient Data Vital Signs Vital Signs Date Time Temp Pulse Resp B/P (MAP) Pulse Ox O2 Delivery O2 Flow Rate FiO2 12/25/18 21:12 99 20 146/94 (111) 98 Room Air 12/25/18 20:34 97.6 Lab Results Laboratory Tests Test 12/25/18 20:52 White Blood Count 4.5 x10^3/uL (4.0-11.0) Red Blood Count 4.67 x10^6/uL (4.30-5.70) Hemoglobin 12.5 g/dL (13.0-17.5) L Hematocrit 39.5 % (39.0-53.0) Mean Corpuscular Volume 85 fL (79-100) Mean Corpuscular Hemoglobin 27 pg (25-35) Mean Corpuscular Hemoglobin Concent 32 g/dL (31-37) Red Cell Distribution Width 15.0 % (11.5-14.5) H Platelet Count 202 x10^3/uL (140-400) Neutrophils (%) (Auto) 55 % (31-73) Lymphocytes (%) (Auto) 27 % (24-48) Monocytes (%) (Auto) 12 % (0-9) H Eosinophils (%) (Auto) 6 % (0-3) H Basophils (%) (Auto) 1 % (0-3) Neutrophils # (Auto) 2.4 x10^3uL (1.8-7.7) Lymphocytes # (Auto) 1.2 x10^3/uL (1.0-4.8) Monocytes # (Auto) 0.5 x10^3/uL (0.0-1.1) Eosinophils # (Auto) 0.3 x10^3/uL (0.0-0.7) Basophils # (Auto) 0.0 x10^3/uL (0.0-0.2) Sodium Level 136 mmol/L (136-145) Potassium Level 5.0 mmol/L (3.5-5.1) Chloride Level 104 mmol/L (98-107) Carbon Dioxide Level 20 mmol/L (21-32) L Anion Gap 12 (6-14) Blood Urea Nitrogen 41 mg/dL (8-26) H Creatinine 2.0 mg/dL (0.7-1.3) H Estimated GFR (Cockcroft-Gault) 31.8 BUN/Creatinine Ratio 21 (6-20) H Glucose Level 269 mg/dL (70-99) H Calcium Level 8.3 mg/dL (8.5-10.1) L Magnesium Level 2.4 mg/dL (1.8-2.4) Total Bilirubin < 0.1 mg/dL (0.2-1.0) L Aspartate Amino Transferase (AST) 25 U/L (15-37) Alanine Aminotransferase (ALT) 14 U/L (16-63) L Alkaline Phosphatase 104 U/L (46-116) Troponin I Quantitative 0.021 ng/mL (0-0.055) Total Protein 7.3 g/dL (6.4-8.2) Albumin 3.0 g/dL (3.4-5.0) L Albumin/Globulin Ratio 0.7 (1.0-1.7) L EKG EKG [] Radiology/Procedures Radiology/Procedures [] Impressions: PROCEDURE: CT HEAD WO CONTRAST PQRS Compliance statement: One or more of the following individualized dose reduction techniques were utilized for this examination: 1. Automated exposure control. 2. Adjustment of the mA and/or kV according to patient size. 3. Use of iterative reconstruction technique. Indication:MENTAL STATUS CHANGES TECHNIQUE: CT head without IV contrast COMPARISON:None FINDINGS: No pathologic extra-axial or intra-axial fluid collection. Mild to moderate diffuse atrophy with ex vacuo dilation of the ventricles. The basal cisterns are within normal limits. No acute intracranial bleed. No focal loss of fernández-white differentiation. Visualized orbits within normal limits. No suspicious calvarial lesion. Visualized paranasal sinuses and mastoid air cells are clear. IMPRESSION: 1. No acute intracranial bleed. 2. Moderate diffuse atrophy. Electronically signed by: Deepak Pagan DO (12/25/2018 9:59 PM) [facility] Course & Med Decision Making Course & Med Decision Making Pertinent Labs and Imaging studies reviewed. (See chart for details) [] Dragon Disclaimer Dragon Disclaimer This electronic medical record was generated, in whole or in part, using a voice recognition dictation system. Departure Departure: Impression: Primary Impression: Dehydration Additional Impression: Dizziness Disposition: 01 HOME, SELF-CARE Condition: STABLE Referrals: CATARINO CHAIREZ MD (PCP) Patient Instructions: Dehydration, Adult, Dizziness Scripts Meclizine Hcl (MECLIZINE HCL) 25 Mg Tablet 1 TAB PO PRN TID PRN for DIZZINESS, #30 TAB Prov: SARAH PALMA Jr. DO 12/26/18 Problem Qualifiers SARAH PALMA Jr. DO Dec 25, 2018 23:16
[2018-12-25] MEDS ORDERED: MECLIZINE 12.5 MG TABLET. PO STA (23:24)
[2018-12-25] MEDS ORDERED: IV NORMAL SALINE 1,000ML 1,000 ML IV ONE (23:45)
[2018-12-26 00:32] VITALS: BP 151/89
[2018-12-26] MEDS ORDERED: MECL25TA3 PO (00:44)
--- NOTE | 2018-12-26 08:10 | RAD ---
PORTABLE CHEST 1V History: mental status changes Comparison: November 03, 2018 Findings: AP view of the chest is submitted. There is no new infiltrate, pleural fluid, pneumothorax. Heart size is stable. There may be epicardial fat on the left. There is atherosclerotic calcification near aortic arch. There is degenerative change of the shoulders greater on the right. Impression: 1. No acute radiographic abnormality is identified. Electronically signed by: Tawanda Rubio MD (12/26/2018 8:07 AM) [id number]
--- NOTE | 2018-12-26 18:32 | EKG ---
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
== END 2018-12-26 00:50 | disposition home or self-care (01) ==
LOC: ER 20:17
DX: E86.0 Dehydration (principal); R42 Dizziness and giddiness; E11.9 Type 2 diabetes mellitus without complications; E78.00 Pure hypercholesterolemia, unspecified; I10 Essential (primary) hypertension; Z86.73 Personal history of transient ischemic attack (TIA), and cerebral infarction without residual deficits
CPT/HCPCS: 36415; 70450; 71045; 80053; 83735; 84484; 85025; 93005; 99284; J7040; J8597

== ENCOUNTER → 2019-07-25 | Outpatient (CLI) | payer MEDICARE, OTHER ==
[~2019-07-25] MED LIST changes: +LISI1TAB23 PO; -LISI1TAB3 PO; +MECL25TA3 PO; -ROSU10TA25 PO; +ROSU10TA26 PO
--- NOTE | 2019-07-25 16:11 | RAD ---
EXAM: Chest, 2 views. HISTORY: Cough. COMPARISON: 12/25/2018 FINDINGS: 2 views of the chest are obtained. There is no infiltrate, pleural effusion or pneumothorax. The heart is normal in size. IMPRESSION: No acute pulmonary finding. Electronically signed by: Sil Donahue MD (07/25/2019 4:08 PM) [facility]
[2019-07-25 16:21] LABS: BASO % 1 % (0-3); EOS # 0.2 x10^3/uL (0.0-0.7); EOS % 4 % (0-3); HEMATOCRIT 39.1 % (39.0-53.0); HEMOGLOBIN 12.1 g/dL (13.0-17.5); LYMPH # 0.5 x10^3/uL (1.0-4.8); LYMPH % 11 % (24-48); MEAN CORPUSCULAR HEMOGLOBIN 25 pg (25-35); MEAN CORPUSCULAR HGB CONC 31 g/dL (31-37); MEAN CORPUSCULAR VOLUME 81 fL (79-100); MONO # 0.3 x10^3/uL (0.0-1.1); MONO % 7 % (0-9); NEUT # 3.7 x10^3uL (1.8-7.7); NEUT % 77 % (31-73); PLATELET COUNT 172 x10^3/uL (140-400); RED BLOOD COUNT 4.85 x10^6/uL (4.30-5.70); RED CELL DISTRIBUTION WIDTH 16.6 % (11.5-14.5); WHITE BLOOD COUNT 4.9 x10^3/uL (4.0-11.0)
[2019-07-25 16:42] LABS: ALBUMIN 3.1 g/dL (3.4-5.0); ALBUMIN/GLOBULIN RATIO 0.7 (1.0-1.7); CALCIUM 8.6 mg/dL (8.5-10.1); CREATININE 2.4 mg/dL (0.7-1.3); GFR 25.8; POTASSIUM 4.9 mmol/L (3.5-5.1); TOTAL BILIRUBIN 0.2 mg/dL (0.2-1.0); TOTAL PROTEIN 7.3 g/dL (6.4-8.2)
== END | disposition home or self-care (01) ==
LOC: DXRAD 15:40
PROVIDERS: ATTEND Family Medicine
DX: R05 Cough (principal)
CPT/HCPCS: 36415; 71046; 80053; 85025

== ENCOUNTER 2019-09-22 20:18 | Emergency (ER) | payer MEDICARE, OTHER ==
[~2019-09-22] VITALS: Ht 172.7 cm; Wt 73.9 kg
[2019-09-22 20:39] VITALS: BP 165/87
--- NOTE | 2019-09-22 21:17 | RAD ---
EXAM: Head CT without contrast. HISTORY: Fall. TECHNIQUE: Computed tomographic images of the head were obtained without contrast. *One or more of the following individualized dose reduction techniques were utilized for this examination: 1. Automated exposure control. 2. Adjustment of the mA and/or kV according to patient size. 3. Use of iterative reconstruction technique. COMPARISON: 07/28/2010. FINDINGS: There is no acute or subacute extra-axial or intraparenchymal hemorrhage. There is no mass effect or midline shift. There is no hydrocephalus. There are areas of decreased attenuation within the cerebral white matter, nonspecific and likely related to chronic small vessel disease. There is cerebral atrophy with compensatory enlargement of the extra-axial space. There is decreased attenuation within the posterior left temporal lobe likely due to encephalomalacia. There is associated volume loss with ex vacuo dilatation of the posterior left lateral ventricle. There is evidence of right lens surgery. The orbits, paranasal sinuses mastoid air cells are otherwise unremarkable. No suspicious calvarial lesion is seen. IMPRESSION: 1. No acute intracranial finding. Note is made that MRI is more sensitive for acute infarction. 2. Suspected encephalomalacia within the left temporal lobe with associated ex vacuo dilatation of the posterior left lateral ventricle. 3. Decreased attenuation within the cerebral white matter, likely due to chronic small vessel disease. 4. Cerebral atrophy. Electronically signed by: Sil Donahue MD (09/22/2019 9:14 PM) [facility]
--- NOTE | 2019-09-22 22:05 | PHYS DOC ---
Past History Past Medical History: CVA, Diabetes, High Cholesterol, Hypertension, Stroke, Other Past Surgical History: Other Additional Past Surgical Histo: HERNI REPAIR AND LAMINECTOMY, ROTATOR CUFF REPAIR Smoking: Non-smoker Alcohol Use: None Drug Use: None Adult General Chief Complaint Chief Complaint: MECHANICAL FALL [facility] HPI Patient is a 88-year-old male with a prior stroke on Plavix presenting after he fell down mechanical fall hIt head primary care doctor asked him to come in for a CT scan Review of Systems Review of Systems Constitutional: Denies fever or chills [] Eyes: Denies change in visual acuity, redness, or eye pain [] HENT: Denies nasal congestion or sore throat [] Respiratory: Denies cough or shortness of breath [] Cardiovascular: No additional information not addressed in HPI [] GI: Denies abdominal pain, nausea, vomiting, bloody stools or diarrhea [] : Denies dysuria or hematuria [] Musculoskeletal: Denies back pain or joint pain [] Integument: Denies rash or skin lesions [] Neurologic mild headache no other complaints All other systems were reviewed and found to be within normal limits, except as documented in this note. Allergies Allergies Allergies Coded Allergies Type Severity Reaction Last Updated Verified No Known Drug Allergies 11/29/16 No Physical Exam Physical Exam Constitutional: Well developed, well nourished, no acute distress, non-toxic appearance. [] HENT: Normocephalic, contusion to the occiput, bilateral external ears normal, oropharynx moist, no oral exudates, nose normal. [] Eyes: PERRLA, EOMI, conjunctiva normal, no discharge. [] Neck: Normal range of motion, no tenderness, supple, no stridor. [] Pulmonary: Normal respiratory effort no increased work of breathing no obvious chest wall trauma Abdomen: Bowel sounds normal, soft, no tenderness, no masses, no pulsatile masses. [] Skin: Warm, dry, no erythema, no rash. [] \ Extremities: No tenderness, no cyanosis, no clubbing, ROM intact, no edema. [] Neurologic: Alert and oriented X 2, normal motor function, normal sensory function, no focal deficits noted. [] Psychologic: Affect normal, judgement normal, mood normal. [] Current Patient Data Vital Signs Vital Signs Date Time Temp Pulse Resp B/P (MAP) Pulse Ox O2 Delivery O2 Flow Rate FiO2 11/23/19 20:39 97.9 94 18 98 Room Air Lab Results * None Temperature (Fahrenheit): * 97.9 degrees F (97.6-99.5) Patient Temperature * 97.9 degrees F (97.5-99.5) Temperature Source * Oral Blood Pressure Systolic * 165 mm Hg (100-140) H Blood Pressure Diastolic * 87 mm Hg (60-100) Blood Pressure Mean * 113 mm Hg Blood Pressure Location * Right Arm Blood Pressure Source * Automatic Cuff Pulse Rate * 94 beats per minute (60-90) H Pulse Assessment Method * Monitor Respiratory Rate * 18 breaths per minute (12-24) Oxygen Delivery Method * Room Air EKG EKG [] Radiology/Procedures Radiology/Procedures [] Impressions: IMPRESSION: 1. No acute intracranial finding. Note is made that MRI is more sensitive for acute infarction. 2. Suspected encephalomalacia within the left temporal lobe with associated ex vacuo dilatation of the posterior left lateral ventricle. 3. Decreased attenuation within the cerebral white matter, likely due to chronic small vessel disease. 4. Cerebral atrophy. Electronically signed by: Sil Donahue MD (09/22/2019 9:14 PM) [facility] DICTATED AND SIGNED BY: SIL DONAHUE MD DATE: 09/22/192113 CC: CATARINO CHAIREZ MD; ARISTEO COTA MD ~ Course & Med Decision Making Course & Med Decision Making Pertinent Labs and Imaging studies reviewed. (See chart for details) []Closed head injury CT negative reassurance provided Dragon Disclaimer Dragon Disclaimer This electronic medical record was generated, in whole or in part, using a voice recognition dictation system. Departure Departure: Impression: Primary Impression: Head injury Disposition: HOME, SELF-CARE Condition: STABLE Patient Instructions: Head Injury, Adult, [id number] ARISTEO COTA MD Sep 22, 2019 22:05
== END 2019-09-22 21:35 | disposition home or self-care (01) ==
LOC: ER 20:18
DX: S00.03XA Contusion of scalp, initial encounter (principal); R51 Headache; E11.9 Type 2 diabetes mellitus without complications; E78.00 Pure hypercholesterolemia, unspecified; I10 Essential (primary) hypertension; Z86.73 Personal history of transient ischemic attack (TIA), and cerebral infarction without residual deficits; W18.39XA Other fall on same level, initial encounter; Y93.89 Activity, other specified; Y92.89 Other specified places as the place of occurrence of the external cause; Y99.8 Other external cause status
CPT/HCPCS: 70450; 99284-25

== ENCOUNTER 2021-11-01 13:47 | Inpatient (IN) | payer MEDICARE, OTHER ==
[~2021-11-01] VITALS: Ht 172.7 cm; Wt 74.0 kg
[~2021-11-01 13:47] MED LIST changes: -ASPI-612 PO; +ASPI-889 PO; -LISI1TAB23 PO; +LISI1TAB35 PO; +MECL-75 PO; -MECL25TA3 PO
[2021-11-01] MEDS ORDERED: ONDANSETRON PF 4 MG/2 ML VIAL. IVP ONE (14:15)
[2021-11-01 14:31] LABS: BASO % 0 % (0-3); EOS % 0 % (0-3); HEMATOCRIT 32.3 % (39.0-53.0); HEMOGLOBIN 9.8 g/dL (13.0-17.5); LYMPH # 0.3 x10^3/uL (1.0-4.8); LYMPH % 3 % (24-48); MEAN CORPUSCULAR HEMOGLOBIN 27 pg (25-35); MEAN CORPUSCULAR HGB CONC 30 g/dL (31-37); MEAN CORPUSCULAR VOLUME 89 fL (79-100); MONO # 0.6 x10^3/uL (0.0-1.1); MONO % 6 % (0-9); NEUT # 8.7 x10^3uL (1.8-7.7); NEUT % 91 % (31-73); PLATELET COUNT 206 x10^3/uL (140-400); RED BLOOD COUNT 3.64 x10^6/uL (4.30-5.70); RED CELL DISTRIBUTION WIDTH 15.4 % (11.5-14.5); WHITE BLOOD COUNT 9.6 x10^3/uL (4.0-11.0)
--- NOTE | 2021-11-01 14:39 | PHYS DOC ---
Past History Past Medical History: CVA, Diabetes, High Cholesterol, Hypertension, Stroke, Other Past Surgical History: Other Additional Past Surgical Histo: HERNI REPAIR AND LAMINECTOMY, ROTATOR CUFF REPAIR Smoking: Non-smoker Alcohol Use: None Drug Use: None General Adult EDM: Chief Complaint: FEVER HPI: HPI: Patient is a 89-year-old male brought in by EMS from home for a fever and vomiting. History is severely limited as patient is nonverbal after a previous stroke. Per EMS patient has been feeling unwell for the past 1 to 2 days. Un known Covid status On daughter arrival she says that he had a stroke in 2008 and has had difficulties with verbalizing since then. 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 She stated that yesterday he started having a fever and had green emesis that turned darker brown overnight and describes of it as coffee-ground. Patient is currently taking Plavix. Has had one of his Covid vaccines. Review of Systems: Review of Systems: All other systems within normal limits except for as noted in the HPI Current Medications: Current Meds: Current Medications Medications (Trade) Dose Ordered Sig/Callum Start Time Stop Time Status Last Admin Dose Admin Ondansetron HCl (Zofran) 4 mg 1X ONCE 11/01/21 14:15 11/01/21 14:17 DC Allergies: Allergies: Allergies Coded Allergies Type Severity Reaction Last Updated Verified No Known Drug Allergies 11/29/16 No Physical Exam: PE: Constitutional: Well developed, well nourished, no acute distress, non-toxic appearance. [] HENT: Normocephalic, atraumatic, bilateral external ears normal, oropharynx moist, no oral exudates, nose normal. [] Eyes: PERRLA, EOMI, conjunctiva normal, no discharge. [] Neck: Normal range of motion, no tenderness, supple, no stridor. [] Cardiovascular:Heart rate regular rhythm, no murmur [] Lungs & Thorax: Bilateral breath sounds clear to auscultation [] Abdomen: Bowel sounds normal, soft, no tenderness, no masses, no pulsatile masses. [] Skin: Warm, dry, no erythema, no rash. [] Back: No tenderness, no CVA tenderness. [] Extremities: No tenderness, no cyanosis, no clubbing, ROM intact, no edema. [] Neurologic: Alert and oriented X 3, normal motor function, normal sensory function, no focal deficits noted. [] Psychologic: Affect normal, judgement normal, mood normal. [] Current Patient Data: Labs: Laboratory Tests Test 11/01/21 13:58 11/01/21 14:06 White Blood Count 9.6 x10^3/uL (4.0-11.0) Red Blood Count 3.64 x10^6/uL (4.30-5.70) L Hemoglobin 9.8 g/dL (13.0-17.5) L Hematocrit 32.3 % (39.0-53.0) L Mean Corpuscular Volume 89 fL (79-100) Mean Corpuscular Hemoglobin 27 pg (25-35) Mean Corpuscular Hemoglobin Concent 30 g/dL (31-37) L Red Cell Distribution Width 15.4 % (11.5-14.5) H Platelet Count 206 x10^3/uL (140-400) Neutrophils (%) (Auto) 91 % (31-73) H Lymphocytes (%) (Auto) 3 % (24-48) L Monocytes (%) (Auto) 6 % (0-9) Eosinophils (%) (Auto) 0 % (0-3) Basophils (%) (Auto) 0 % (0-3) Neutrophils # (Auto) 8.7 x10^3uL (1.8-7.7) H Lymphocytes # (Auto) 0.3 x10^3/uL (1.0-4.8) L Monocytes # (Auto) 0.6 x10^3/uL (0.0-1.1) Eosinophils # (Auto) 0.0 x10^3/uL (0.0-0.7) Basophils # (Auto) 0.0 x10^3/uL (0.0-0.2) POC Venous pH 7.31 (7.32-7.42) L POC Venous pCO2 21 mmHg (41-51) L POC Venous pO2 66 mmHg (20-40) H Venous Blood HCO3 10 mmol/L (24-28) L POC Venous O2 Saturation ([place]) 91 % POC FiO2 21 EKG: EKG: Sinus tachycardia, heart rate 113, normal axis, no ST elevation or depression [] Radiology/Procedures: Radiology/Procedures: [address] [address] IMAGING REPORT Signed PATIENT: RACQUEL ENGEL ACCOUNT: [id number] : 1930 LOCATION: ER AGE: 89 SEX: M EXAM STATUS: REG ER ORD. PHYSICIAN: CLAUDIA WYATT MD REASON: COVID, EMESIS, ABD DISTENSION,COUGH PROCEDURE: ACUTE ABDOMEN SERIES Exam Date: 11/01/2021 3:00 PM XR ABDOMEN COMP ACUTE Indication: Reason: COVID, EMESIS, ABD DISTENSION,COUGH / Spl. Instructions: / History: . FINDINGS/ IMPRESSION: CHEST: Aorta is calcified. Cardiac silhouette is enlarged without significant congestion. No focal consolidation, pleural effusion, or pneumothorax. Degenerative changes are noted in the spine. ABDOMEN AND PELVIS: There is a non-dilated, non-obstructed bowel gas pattern. Air and fecal matter are seen within the colon. Degenerative changes in the spine and pelvis. Electronically signed by: Gladys Davis MD (11/01/2021 3:36 PM) [facility] DICTATED AND SIGNED BY: GLADYS DAVIS MD DATE: 11/01/21 1534 CC: CATARINO CHAIREZ MD; CLAUDIA WYATT MD ~MTH0 0 [][address] [address] IMAGING REPORT Signed PATIENT: RACQUEL ENGEL ACCOUNT: [id number] : 1930 LOCATION: ER AGE: 89 SEX: M EXAM STATUS: REG ER ORD. PHYSICIAN: CLAUDIA WYATT MD REASON: ams PROCEDURE: CT HEAD WO CONTRAST EXAMINATION: CT head without IV contrast INDICATION:89 years, Male, altered mental status. COMPARISON: None TECHNIQUE: Spiral acquisition of contiguous images from the skull base to the vertex were obtained. Sagittal and coronal 2D reformatted series were provided by the technologist. Soft tissue and bone window algorithms were reviewed. Exposure: One or more of the following individualized dose reduction techniques were utilized for this examination: 1. Automated exposure control 2. Adjustment of the mA and/or kV according to patient size 3. Use of iterative reconstruction technique. FINDINGS: Neither mass, midline shift, intracranial hemorrhage, acute/subacute ischemic changes, nor extraaxial fluid collections are seen. Similar areas of decreased periventricular attenuation, nonspecific likely related to chronic small vessel disease. There is redemonstration of extensive cerebral atrophy with compensatory enlargement of the extra-axial space. Similar decreased attenuation within the left posterior left temporal lobe from chronic infarct with similar ex vacuo dilation of the posterior left lateral ventricle. Trace mucosal thickening of maxillary sinuses. Remaining paranasal sinuses, mastoid air cells, and middle ears are clear.The orbital contents appear within normal limits. Calvarium is intact. IMPRESSION: 1. No evidence of acute intracranial abnormality. 2. 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 3. Encephalomalacia within the left temporal lobe with associated ex vacuo dilation of the posterior left lateral ventricle. Electronically signed by: Theresa Real DO (11/01/2021 4:57 PM) [facility] DICTATED AND SIGNED BY: THERESA REAL DO DATE: 11/01/211652 CC: CATARINO CHAIREZ MD; CLAUDIA WYATT MD ~[facility] [address] [place] [address] IMAGING REPORT Signed PATIENT: RACQUEL ENGEL ACCOUNT: [id number] : 1930 LOCATION: ER AGE: 89 SEX: M EXAM STATUS: REG ER ORD. PHYSICIAN: CLAUDIA WYATT MD REASON: covid, poss bowel obstruction, abdomen pain, short of air PROCEDURE: CT CHEST ABDOMEN PELVIS WO EXAM: CT Chest, Abdomen and Pelvis without IV contrast CLINICAL HISTORY: Reason: covid, poss bowel obstruction, abdomen pain, short of air / Spl. Instructions: / History: COMPARISON: None. TECHNIQUE: Helical CT of the chest, abdomen and pelvis was performed following the administration of intravenous contrast. Axial, coronal and sagittal reformatted images were generated. ---PQRS compliance statement - One or more of the following individualized dose reduction techniques were utilized for this study: 1. Automated exposure control 2. Adjustment of the mA and/or kV according to patient size 3. Use of iterative reconstruction technique--- FINDINGS: CHEST: Evaluation is degraded secondary to patient motion. LUNGS/PLEURA: Patchy groundglass opacities within the left upper lobe and also in the left lower lobe. There are also patchy groundglass opacities in a bronchovascular distribution in the right upper lobe. No suspicious pulmonary nodules are visualized. No pleural effusion or focal pleural lesion. MEDIASTINUM: No pathologic mediastinal or hilar adenopathy. The thoracic aorta and pulmonary arteries are normal in caliber. Scattered atherosclerotic disease of the thoracic aorta and major branching vessels. The heart is normal in size. No pericardial effusion. Mild calcified coronary atherosclerosis. The visualized thyroid unremarkable. Mild esophageal wall thickening may relate to reflux dysphagia process. AXILLA/SOFT TISSUE: No supraclavicular or axillary adenopathy. Regional soft tissues are within normal limits. Abdomen and Pelvis: Liver and biliary system: No focal liver lesion. Gallbladder is decompressed. Cholelithiasis without evidence of acute cholecystitis. No biliary ductal dilation. Spleen: Unremarkable Pancreas: Severely atrophic with no focal abnormality. Adrenal glands: Unremarkable Kidneys: Kidneys are symmetrically atrophic with no obstructing nephrolithiasis or hydroureteronephrosis. Lymph nodes/retroperitoneum: No pathologic adenopathy or retroperitoneal masses. Vessels: Moderate to severe aortobiiliac atherosclerotic disease with no evidence of aneurysmal dilation. Bowel/Peritoneal cavity: Small hiatal hernia. Stomach is otherwise unremarkable. No evidence of bowel obstruction or focal bowel inflammation. Scattered colonic diverticulosis without diverticulitis. No free intra-abdominal air or free fluid . Appendix is not definitely visualized. 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 Abdominal wall: Abdominal wall is unremarkable. Small fat-containing bilateral inguinal hernias. Bladder: Urinary bladder is decompressed secondary to Kellogg catheter placement. Small amount of nondependent air in the bladder, likely iatrogenic. Reproductive: Prostate gland is enlarged with no discrete focal abnormality. Bones: Multilevel degenerative changes of the thoracolumbar spine also bilateral SI joints and hips. No acute fracture or suspicious osseous abnormality. IMPRESSION: 1. Patchy bilateral groundglass opacities most consistent with atypical pneumonia. 2. No evidence of acute abnormality in the abdomen or pelvis. 3. Colonic diverticulosis without diverticulitis. 4. Cholelithiasis. 5. Mild esophageal wall thickening may relate to reflux dysphagia process. Recommend follow-up with gastroenterology for consideration of endoscopy. 6. Other chronic/insult findings, as above. Electronically signed by: Theresa Real DO (11/01/2021 5:14 PM) [facility] DICTATED AND SIGNED BY: THERESA REAL DO DATE: 11/01/21 1658 CC: CATARINO CHAIREZ MD; CLAUDIA WYATT MD ~MTH0 0 Heart Score: C/O Chest Pain: N/A HEART Score for Chest Pain: HEART Score for Chest Pain Response (Comments) Value History Slighlty/Non-Suspicious 0 ECG Normal 0 Age > 65 2 Risk Factors 1 or 2 Risk Factors 1 Troponin >1-<3x Normal Limit 1 Total 4 Risk Factors: Risk Factors: DM, Current or recent (<one month) smoker, HTN, HLP, family history of CAD, obesity. Risk Scores: Score 0 - 3: 2.5% MACE over next 6 weeks - Discharge Home Score 4 - 6: 20.3% MACE over next 6 weeks - Admit for Clinical Observation Score 7 - 10: 72.7% MACE over next 6 weeks - Early Invasive Strategies Course & Med Decision Making: Course & Med Decision Making Pertinent Labs and Imaging studies reviewed. (See chart for details) With worsening renal failure and Covid. Not requiring oxygen at this time but has multiple comorbidities. Admitted to the hospitalist. 11/02/21: Patient still in ER hold. Hospitalist discussed with patient's family we need to go [place] there is no beds available. Patient discussed the pro cess of him possibly having to undergo hemodialysis in the setting of his difficulty with getting out. Patient decided to change CODE STATUS and go home with hospice. Hospice consult placed by the hospitalist and arrangements were made for the patient to go home with necessary medical equipment. Transfer back to home via EMS [] Dragon Disclaimer: Dragon Disclaimer: This electronic medical record was generated, in whole or in part, using a voice recognition dictation system. Departure Departure: Impression: Primary Impression: COVID-19 Additional Impressions: Hyperglycemia Renal failure Disposition: 50 HOSPICE/HOME Condition: GUARDED Referrals: CATARINO CHAIREZ MD (PCP) Patient Instructions: Renal Diet, Pre-Dialysis CLAUDIA WYATT MD Nov 01, 2021 14:39
[2021-11-01 14:50] LABS: INFLUENZA A PATIENT NEGATIVE (NEGATIVE); INFLUENZA B PATIENT NEGATIVE (NEGATIVE)
[2021-11-01 15:00] LABS: ALBUMIN 2.9 g/dL (3.4-5.0); ALBUMIN/GLOBULIN RATIO 0.7 (1.0-1.7); CALCIUM 8.1 mg/dL (8.5-10.1); CREATININE 3.7 mg/dL (0.7-1.3); GFR 15.5; MAGNESIUM 2.2 mg/dL (1.8-2.4); POTASSIUM 5.1 mmol/L (3.5-5.1); TOTAL BILIRUBIN 0.2 mg/dL (0.2-1.0); TOTAL PROTEIN 6.8 g/dL (6.4-8.2)
[2021-11-01] MEDS ORDERED: IV NORMAL SALINE 1,000ML 1,000 ML IV ONE (15:00)
[2021-11-01 15:13] LABS: BILIRUBIN,URINE NEG (NEG); CLARITY,URINE HAZY; COLOR,URINE YELLOW; GLUCOSE,URINE 250 mg/dL (NEG); NITRITE,URINE NEG (NEG); UROBILINOGEN,URINE 0.2 mg/dL (0.2 mg/dL)
[2021-11-01 15:14] LABS: BACTERIA,URINE 0 /HPF (0-FEW); GRANULAR CASTS,URINE MOD /HPF; SQUAMOUS EPITHELIAL CELL,UR FEW /LPF; WBC,URINE 0 /HPF (0-4)
--- NOTE | 2021-11-01 15:38 | RAD ---
Exam Date: 11/01/2021 3:00 PM XR ABDOMEN COMP ACUTE Indication: Reason: COVID, EMESIS, ABD DISTENSION,COUGH / Spl. Instructions: / History: . FINDINGS/ IMPRESSION: CHEST: Aorta is calcified. Cardiac silhouette is enlarged without significant congestion. No focal consoli dation, pleural effusion, or pneumothorax. Degenerative changes are noted in the spine. ABDOMEN AND PELVIS: There is a non-dilated, non-obstructed bowel gas pattern. Air and fecal matter are seen within the c olon. Degenerative changes in the spine and pelvis. Electronically signed by: Fabricio Davis MD (11/01/2021 3:36 PM) DEE DEE
--- NOTE | 2021-11-01 16:04 | EKG ---
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
[2021-11-01] MEDS ORDERED: INSULIN REGULAR 100 UNIT/ML 3ML VIAL. IV ONE ×3 (16:30→18:30)
--- NOTE | 2021-11-01 16:59 | RAD ---
EXAMINATION: CT head without IV contrast INDICATION:89 years, Male, altered mental status. COMPARISON: None TECHNIQUE: Spiral acquisition of contiguous images from the skull base to the vertex were obtained. S agittal and coronal 2D reformatted series were provided by the technologist. Soft tissue and bone win king algorithms were reviewed. Exposure: One or more of the following individualized dose reduction techniques were utilized for thi s examination: 1. Automated exposure control 2. Adjustment of the mA and/or kV according to patient size 3. Use of iterative reconstruction technique. FINDINGS: Neither mass, midline shift, intracranial hemorrhage, acute/subacute ischemic changes, nor extraaxial fluid collections are seen. Similar areas of decreased periventricular attenuation, nonspecific like ly related to chronic small vessel disease. There is redemonstration of extensive cerebral atrophy wi th compensatory enlargement of the extra-axial space. Similar decreased attenuation within the left p osterior left temporal lobe from chronic infarct with similar ex vacuo dilation of the posterior left lateral ventricle. Trace mucosal thickening of maxillary sinuses. Remaining paranasal sinuses, mastoid air cells, and mi ddle ears are clear.The orbital contents appear within normal limits. Calvarium is intact. IMPRESSION: 1. No evidence of acute intracranial abnormality. 2. Similar extensive periventricular white matter hypodensities, indeterminate but most likely repre senting chronic microangiopathic disease. 3. Encephalomalacia within the left temporal lobe with associated ex vacuo dilation of the posterior left lateral ventricle. Electronically signed by: Justin Real DO (11/01/2021 4:57 PM) [facility]
--- NOTE | 2021-11-01 17:17 | RAD ---
EXAM: CT Chest, Abdomen and Pelvis without IV contrast CLINICAL HISTORY: Reason: covid, poss bowel obstruction, abdomen pain, short of air / Spl. Instructio ns: / History: COMPARISON: None. TECHNIQUE: Helical CT of the chest, abdomen and pelvis was performed following the administration of intravenous contrast. Axial, coronal and sagittal reformatted images were generated. ---PQRS compliance statement - One or more of the following individualized dose reduction techniques were utilized for this study: 1. Automated exposure control 2. Adjustment of the mA and/or kV according to patient size 3. Use of iterative reconstruction technique--- FINDINGS: CHEST: Evaluation is degraded secondary to patient motion. LUNGS/PLEURA: Patchy groundglass opacities within the left upper lobe and also in the left lower lobe . There are also patchy groundglass opacities in a bronchovascular distribution in the right upper lo be. No suspicious pulmonary nodules are visualized. No pleural effusion or focal pleural lesion. MEDIASTINUM: No pathologic mediastinal or hilar adenopathy. The thoracic aorta and pulmonary arteries are normal in caliber. Scattered atherosclerotic disease of the thoracic aorta and major branching v essels. The heart is normal in size. No pericardial effusion. Mild calcified coronary atherosclerosis . The visualized thyroid unremarkable. Mild esophageal wall thickening may relate to reflux dysphagia process. AXILLA/SOFT TISSUE: No supraclavicular or axillary adenopathy. Regional soft tissues are within joy l limits. Abdomen and Pelvis: Liver and biliary system: No focal liver lesion. Gallbladder is decompressed. Cholelithiasis without evidence of acute cholecystitis. No biliary ductal dilation. Spleen: Unremarkable Pancreas: Severely atrophic with no focal abnormality. Adrenal glands: Unremarkable Kidneys: Kidneys are symmetrically atrophic with no obstructing nephrolithiasis or hydroureteronephro sis. Lymph nodes/retroperitoneum: No pathologic adenopathy or retroperitoneal masses. 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 Bowel/Peritoneal cavity: Small hiatal hernia. Stomach is otherwise unremarkable. No evidence of bowel obstruction or focal bowel inflammation. Scattered colonic diverticulosis without diverticulitis. No free intra-abdominal air or free fluid . Appendix is not definitely visualized. 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 Abdominal wall: Abdominal wall is unremarkable. Small fat-containing bilateral inguinal hernias. Bladder: Urinary bladder is decompressed secondary to Kellogg catheter placement. Small amount of nonde pendent air in the bladder, likely iatrogenic. Reproductive: Prostate gland is enlarged with no discrete focal abnormality. Bones: Multilevel degenerative changes of the thoracolumbar spine also bilateral SI joints and hips. No acute fracture or suspicious osseous abnormality. IMPRESSION: 1. Patchy bilateral groundglass opacities most consistent with atypical pneumonia. 2. No evidence of acute abnormality in the abdomen or pelvis. 3. Colonic diverticulosis without diverticulitis. 4. Cholelithiasis. 5. Mild esophageal wall thickening may relate to reflux dysphagia process. Recommend follow-up with g astroenterology for consideration of endoscopy. 6. Other chronic/insult findings, as above. Electronically signed by: Justin Real DO (11/01/2021 5:14 PM) [facility]
[2021-11-01] MEDS ORDERED: IV RINGERS SOLUTION,LACTATED 1,000 ML IV ONE (18:00)
[2021-11-01] MEDS ORDERED: ACETAMINOPHEN 650 MG SUPP.RECT. PR PRN (18:00)
[2021-11-01] MEDS ORDERED: ONDANSETRON PF 4 MG/2 ML VIAL. IVP PRN (18:00)
[2021-11-01] MEDS: CLINDAMYCIN 600MG PREMIX 50 ML IV SCH (19:41)
[2021-11-01 20:25] LABS: GASTRIC OB PAT POSITIVE (NEG)
[2021-11-02] MEDS: CLINDAMYCIN 600MG PREMIX 50 ML IV SCH ×2 (05:54→14:00)
[2021-11-02] MEDS: IV RINGERS SOLUTION,LACTATED 1,000 ML IV SCH ×2 (08:12→18:02)
[2021-11-02 08:45] LABS: BASO % 0 % (0-3); EOS % 0 % (0-3); HEMATOCRIT 37.4 % (39.0-53.0); HEMOGLOBIN 11.2 g/dL (13.0-17.5); LYMPH # 0.3 x10^3/uL (1.0-4.8); LYMPH % 4 % (24-48); MEAN CORPUSCULAR HEMOGLOBIN 27 pg (25-35); MEAN CORPUSCULAR HGB CONC 30 g/dL (31-37); MEAN CORPUSCULAR VOLUME 90 fL (79-100); MONO # 0.3 x10^3/uL (0.0-1.1); MONO % 3 % (0-9); NEUT # 8.9 x10^3uL (1.8-7.7); NEUT % 94 % (31-73); PLATELET COUNT 203 x10^3/uL (140-400); RED BLOOD COUNT 4.18 x10^6/uL (4.30-5.70); RED CELL DISTRIBUTION WIDTH 16.3 % (11.5-14.5); WHITE BLOOD COUNT 9.6 x10^3/uL (4.0-11.0)
[2021-11-02 08:57] LABS: ALBUMIN 2.6 g/dL (3.4-5.0); ALBUMIN/GLOBULIN RATIO 0.7 (1.0-1.7); CALCIUM 7.6 mg/dL (8.5-10.1); CREATININE 3.7 mg/dL (0.7-1.3); GFR 15.5; POTASSIUM 5.3 mmol/L (3.5-5.1); TOTAL BILIRUBIN 0.2 mg/dL (0.2-1.0); TOTAL PROTEIN 6.2 g/dL (6.4-8.2)
[2021-11-02] MEDS ORDERED: MAGNESIUM SULFATE 2GM 50 ML IV PRN (10:00)
[2021-11-02] MEDS ORDERED: IV NORMAL SALINE 1,000ML 1,000 ML IV SCH (10:00)
[2021-11-02] MEDS ORDERED: POTASSIUM CHLORIDE 10MEQ 100 ML IV PRN ×4 (10:00)
[2021-11-02] MEDS ORDERED: IV DEXTROSE 5 %-0.45 % NACL 1,000 ML IV SCH (10:00)
[2021-11-02] MEDS: INSULIN REGULAR VIAL 100 UNIT in IV NORMAL SALINE 100ML 100 ML IV PRN ×4 (11:04→14:44)
[2021-11-02 12:09] LABS: % ATYL 2 % (0-0); % BANDS 41 % (0-9); % LYMPHS 6 % (24-48); % MONOS 4 % (0-10); % SEGS 47 % (35-66); NUCLEATED RBC 1
[2021-11-02 12:23] LABS: PLT ESTIMATE ADEQUATE (ADEQUATE)
[2021-11-02 12:24] LABS: TARGET CELLS PRESENT
[2021-11-02 18:09] VITALS: BP 161/75
--- NOTE | 2021-11-03 08:54 | RAD ---
AP portable chest radiograph 11/02/2021 Clinical History: Covid 19. Two AP supine portable digital radiographs of the chest were obtained. Comparison is made to the patient's CT scan of the chest dated 11/01/2021. The cardiac silhouette is mildly enlarged. The thoracic aorta is tortuous. Atherosclerotic calcificat ion of the thoracic aorta is seen. Left lower lobe infiltrate is seen which has increased since the p revious examination. No pneumothorax or pleural effusion is noted. The osseous structures are unchang ed. IMPRESSION: Increasing left lower lobe infiltrate. Electronically signed by: Fernando Broussard MD (11/03/2021 8:51 AM) [id number]
--- NOTE | 2021-11-03 09:44 | SSS ---
DATE OF SERVICE: 11/02/2021 ADMIT DATE: 11/01/2021 HISTORY OF PRESENT ILLNESS: The patient is an 89-year-old male patient who was brought to the Emergency Room by [facility] from home for a fever and vomiting. His history is severely limited as the patient is nonverbal after a previous stroke. Per EMS, the patient has been feeling unwell for the past 1-2 days, unknown COVID status. On daughter's arrival, she stated that he has had a stroke in 2008 and has had difficulty with verbalizing since then. Had a history of hypertension and diabetes that is insulin-dependent. She also stated that he started having fever and had green emesis that turned darker brown overnight and describes it as coffee-ground. He is taking Plavix. Has had one of his COVID vaccines only. He was extensively investigated in the Emergency Room, has had lab work and imaging studies. His lab work showed that he has chronic normochromic normocytic anemia with normal white cell count and platelet count. His blood gases showed he was acidotic with a pH of 7.31, pCO2 of 21, pO2 of 66 and bicarbonate was 10. His chemistry showed that his serum sodium was 147, potassium 5.1, chloride 117, bicarbonate 11, anion gap of 19, BUN of 69, creatinine 3.7. Estimated GFR was 15 mL per minute. His glucose was 299. His calcium was 8.1, phosphorus 5, magnesium 2.2. Total bilirubin, AST, ALT, alkaline phosphatase were normal. His total protein 6.8, albumin was 2.9, lipase 178. His prothrombin time and INR were normal, and his urinalysis was essentially unremarkable and unrevealing. His gastric occult blood was positive. Has had imaging studies including a CT scan of the head, showed no evidence of acute intracranial abnormality, similar extensive periventricular white matter hypodensities indeterminate, but most likely representing chronic microangiopathic disease. Encephalomalacia within the left temporal lobe with associated ex-vacuo dilatation of the posterior left lateral ventricle. CT scan of the chest, abdomen and pelvis showed that the patient has patchy bilateral ground glass opacities, most consistent with atypical pneumonia. Has no evidence of acute abnormality in the abdomen and pelvis, colonic diverticulosis without diverticulitis, cholelithiasis. He did have mild esophageal wall thickening, may relate to reflux, dysphagia process. Recommend followup with Gastroenterology for consideration of endoscopy. His kidneys are atrophic in a symmetrical fashion with no obstructing nephrolithiasis or hydroureteronephrosis. He has moderate to severe aortoiliac atherosclerotic disease with no evidence of aneurysmal dilatation. The patient was treated for possible DKA and started on IV fluids and insulin without really any improvement. Looking back into his lab work before showed that his last available serum creatinine in 2019 was 2.4. This together with bilateral symmetric atrophy of both kidneys and anemia all consistent with end-stage renal disease. 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 PAST SURGICAL HISTORY: Includes hernia repair and laminectomy, rotator cuff repair. FAMILY HISTORY: Noncontributory. SOCIAL HISTORY: He lives with his family. He does not smoke, drink alcohol or use recreational drugs. ALLERGIES: He has no known drug allergies. MEDICATIONS: He is currently on the following medications: He is on Augmentin 500/125 one tablet twice a day for pneumonia, Flomax 0.4 mg at bedtime, cilostazol 50 mg twice a day, Crestor 10 mg at bedtime, aspirin/dipyridamole for Aggrenox 1 capsule twice a day, metoprolol succinate 25 mg once a day, lisinopril/hydrochlorothiazide 10/12.5 mg daily. He is on meclizine 25 mg 3 times a day and NovoLog 70/30, 60 units subcutaneously twice a day. PHYSICAL EXAMINATION: GENERAL: On arrival to the Emergency Room, the patient was pale, not jaundiced or cyanosed. No lymphadenopathy, no thyromegaly, no jugular venous distention. No lower limb edema. VITAL SIGNS: Her heart rate was 104, blood pressure was 205/95. His temperature was 99.3, respiratory rate was 22 and oxygen saturation was 95% on room air. HEAD, EYES, EARS, NOSE, AND THROAT: Showed normocephalic, atraumatic. NECK: Supple. HEART: Normal first and second heart sounds. No gallop or murmur. CHEST: Shows central trachea, equal bilateral chest expansion, air entry, vesicular breath sounds with coarse crackles bilaterally posteriorly. I could not appreciate any rhonchi. ABDOMEN: Distended, soft, nontender. NEUROLOGIC: He is nonverbal. He has aphasia and right-sided hemiplegia. He has an indwelling Kellogg catheter. LABORATORY DATA: His lab work this morning showed a white cell count of 9600, hemoglobin 11, hematocrit 37, MCV 90 and platelet count 203,000. His chemistry showed that his serum sodium is 150, potassium 5.3, chloride 120, bicarbonate 10, anion gap of 20, BUN 77, creatinine 3.7. Estimated GFR was 15 mL per minute. His glucose was 297, calcium was 7.6. Total bilirubin, AST, ALT, alkaline phosphatase were normal. Total protein 6.2, albumin 2.6. ASSESSMENT AND PLAN: The patient was treated with insulin as well as IV fluids; however, his kidney function continued to be abnormal and has not really improved. Continued to be acidotic, hypernatremic, hyperkalemic. I did speak with his daughter and explained that he has end-stage renal disease, that he will need hemodialysis. However, although this technically can be done in the long run, the patient is not a candidate for outpatient hemodialysis given his immobility and age and comorbidities, and I did recommend hospice and comfort care. The daughter spoke with her sister and mother, and they decided to take him home on hospice. I informed our manager social services to arrange the hospice for evaluation and treatment, and the patient will be discharged home on hospice via an ambulance. FINAL DISCHARGE DIAGNOSES: End-stage renal disease, severe metabolic acidosis, most likely due to end-stage renal disease; however, mild diabetic ketoacidosis is possible. Hypernatremia, hyperkalemia, hyperphosphatemia, normochromic normocytic anemia, has left middle cerebral artery territory infarct with right-sided hemiplegia. ANABELLA DR: Gracie TID: [id number]
== END 2021-11-02 18:10 | disposition hospice, home (50) | DRG 177 ==
LOC: ER 13:47 → ER HOLD 17:57
PROVIDERS: ADMIT Internal Medicine; ATTEND Internal Medicine
DX: U07.1 COVID-19 (principal); E11.10 Type 2 diabetes mellitus with ketoacidosis without coma; J18.9 Pneumonia, unspecified organism; N18.6 End stage renal disease; E87.0 Hyperosmolality and hypernatremia; I12.0 Hypertensive chronic kidney disease with stage 5 chronic kidney disease or end stage renal disease; I69.351 Hemiplegia and hemiparesis following cerebral infarction affecting right dominant side; E11.22 Type 2 diabetes mellitus with diabetic chronic kidney disease; E11.65 Type 2 diabetes mellitus with hyperglycemia; E78.00 Pure hypercholesterolemia, unspecified; E78.5 Hyperlipidemia, unspecified; E83.39 Other disorders of phosphorus metabolism; G93.89 Other specified disorders of brain; E87.5 Hyperkalemia; I70.0 Atherosclerosis of aorta; K21.9 Gastro-esophageal reflux disease without esophagitis; K22.9 Disease of esophagus, unspecified; K57.30 Diverticulosis of large intestine without perforation or abscess without bleeding; K80.20 Calculus of gallbladder without cholecystitis without obstruction; N40.0 Benign prostatic hyperplasia without lower urinary tract symptoms; R13.10 Dysphagia, unspecified; Z79.4 Long term (current) use of insulin; I69.320 Aphasia following cerebral infarction
CPT/HCPCS: 36415; 70450; 71045; 71250; 74022; 74176; 80053; 81001; 82271; 82803; 82947; 83605; 83690; 83735; 83880; 84100; 84484; 85007; 85025; 85610; 87040; 87205; 87426; 87804; 93005; 96361; 96365; 96366; 96376; J1815; J3490; J7120; 99285-25; J7030